=== PATIENT | female | born 1960 | race Hispanic/Latino ===

== ENCOUNTER 2019-04-06 11:47 | Emergency (ER) | payer MEDICARE, OTHER ==
[~2019-04-06] VITALS: Ht 152.4 cm; Wt 63.5 kg
--- OUTSIDE RECORDS SUMMARY | 2019-04-06 11:50 | XMS REPORT ---
Author Author [facility] Address Unknown Phone Unavailable Care Team Providers Care Unit Assistant Name Role Phone Ender WILSON Unavailable Unavailable Problems This patient has no known problems. Allergies, Adverse Reactions, Alerts This patient has no known allergies or adverse reactions. Medications This patient has no known medications. Results Test Description Test Time Test Comments Text Results Atomic Results Result Comments BLOOD CULTURE 2019-02-25 20:01:00 CULTURE (BEAKER) (test bxnb=7734) No growth in 5 days BLOOD [id number] 20:01:00* Test Item Value Reference Range Comments CULTURE (BEAKER) (test cedh=8844) No growth in 5 days TACROLIMUS [id number] 10:58:00* Test Item Value Reference Range Comments TACROLIMUS BLOOD (BEAKER) (test jdki=419) 7.8 ng/mL 10.0-20.0 VRE [id number] 10:54:00* Test Item Value Reference Range Comments CULTURE (BEAKER) (test kfki=4409) No vancomycin-resistant Enterococcus isolated SPUTUM CULTURE + GRAM [id number] 09:15:00* Test Item Value Reference Range Comments CULTURE (BEAKER) (test afrt=2547) 1+ Normal respiratory johanny present GRAM STAIN RESULT (BEAKER) (test ddqc=9246) 1+ WBCs GRAM STAIN RESULT (BEAKER) (test zvti=27092) 0-5 epithelial cells GRAM STAIN RESULT (BEAKER) (test hbev=58971) No organisms seen CBC W/PLT COUNT & AUTO [id number] 06:53:00* Test Item Value Reference Range Comments WHITE BLOOD CELL COUNT (BEAKER) (test nrrd=716) 4.8 K/ L 3.5-10.5 RED BLOOD CELL COUNT (BEAKER) (test gvam=429) 3.58 M/ L 3.93-5.22 HEMOGLOBIN (BEAKER) (test cbzz=672) 10.5 GM/DL 11.2-15.7 HEMATOCRIT (BEAKER) (test mihs=271) 31.1 % 34.1-44.9 MEAN CORPUSCULAR VOLUME (BEAKER) (test byty=708) 86.9 fL 79.4-94.8 MEAN CORPUSCULAR HEMOGLOBIN (BEAKER) (test ewzz=136) 29.3 pg 25.6-32.2 MEAN CORPUSCULAR HEMOGLOBIN CONC (BEAKER) (test kbgp=604) 33.8 GM/DL 32.2-35.5 RED CELL DISTRIBUTION WIDTH (BEAKER) (test xwfm=683) 15.5 % 11.7-14.4 PLATELET COUNT (BEAKER) (test bezv=781) 192 K/CU MM 150-450 MEAN PLATELET VOLUME (BEAKER) (test oojy=061) 11.9 fL 9.4-12.3 NUCLEATED RED BLOOD CELLS (BEAKER) (test loou=786) 0 /100 WBC 0-0 NEUTROPHILS RELATIVE PERCENT (BEAKER) (test tbms=761) 54 % LYMPHOCYTES RELATIVE PERCENT (BEAKER) (test ztog=425) 24 % MONOCYTES RELATIVE PERCENT (BEAKER) (test xsqb=918) 8 % EOSINOPHILS RELATIVE PERCENT (BEAKER) (test tyxj=983) 12 % BASOPHILS RELATIVE PERCENT (BEAKER) (test hwbw=281) 0 % NEUTROPHILS ABSOLUTE COUNT (BEAKER) (test pnar=398) 2.58 K/ L 1.56-6.13 LYMPHOCYTES ABSOLUTE COUNT (BEAKER) (test yqli=672) 1.16 K/ L 1.18-3.74 MONOCYTES ABSOLUTE COUNT (BEAKER) (test fpxj=518) 0.40 K/ L 0.24-0.36 EOSINOPHILS ABSOLUTE COUNT (BEAKER) (test orqj=773) 0.55 K/ L 0.04-0.36 BASOPHILS ABSOLUTE COUNT (BEAKER) (test npjz=589) 0.02 K/ L 0.01-0.08 IMMATURE GRANULOCYTES-RELATIVE PERCENT (BEAKER) (test gcyp=1065) 2 % 0-1 BASIC METABOLIC [id number] 06:34:00* Test Item Value Reference Range Comments SODIUM (BEAKER) (test iojb=412) 141 meq/L 136-145 POTASSIUM (BEAKER) (test dteo=487) 4.0 meq/L 3.5-5.1 Specimen slightly hemolyzed CHLORIDE (BEAKER) (test igrj=316) 116 meq/L 98-107 CO2 (BEAKER) (test jrsu=250) 19 meq/L 22-29 BLOOD UREA NITROGEN (BEAKER) (test huyd=408) 20 mg/dL 7-21 CREATININE (BEAKER) (test pote=062) 0.98 mg/dL 0.57-1.25 Specimen slightly hemolyzed GLUCOSE RANDOM (BEAKER) (test ukpm=408) 105 mg/dL 70-105 CALCIUM (BEAKER) (test ivxl=856) 8.5 mg/dL 8.4-10.2 EGFR (BEAKER) (test bprg=6925) 58 mL/min/1.73 sq m ESTIMATED GFR IS NOT ACCURATE CREATININE CLEARANCE IN PREDICTING GLOMERULAR FILTRATION RATE. ESTIMATED GFR IS NOT APPLICABLE FOR DIALYSIS PATIENTS. HEPATIC FUNCTION [id number] 06:34:00* Test Item Value Reference Range Comments TOTAL PROTEIN (BEAKER) (test gico=659) 5.3 gm/dL 6.0-8.3 Specimen slightly hemolyzed ALBUMIN (BEAKER) (test snod=9188) 3.5 g/dL 3.5-5.0 Specimen slightly hemolyzed BILIRUBIN TOTAL (BEAKER) (test ixrk=708) 0.6 mg/dL 0.2-1.2 Specimen slightly hemolyzed BILIRUBIN DIRECT (BEAKER) (test nfpf=763) 0.3 mg/dL 0.1-0.5 Specimen slightly hemolyzed ALKALINE PHOSPHATASE (BEAKER) (test qzvi=046) 68 U/L 40-150 AST (SGOT) (BEAKER) (test mwrz=734) 13 U/L 5-34 Specimen slightly hemolyzed ALT (SGPT) (BEAKER) (test nvki=826) 7 U/L 6-55 Specimen slightly hemolyzed TACROLIMUS [id number] 11:41:00* Test Item Value Reference Range Comments TACROLIMUS BLOOD (BEAKER) (test yrdz=879) 11.3 ng/mL 10.0-20.0 CORTISOL,60 [id number] 11:23:00* Test Item Value Reference Range Comments CORTISOL BASELINE NETWORKED (BEAKER) (test hfog=9526) 7.4 mcg/dL CORTISOL 30 MINUTE NETWORKED (BEAKER) (test fnev=5891) 13.4 mcg/dL CORTISOL, 60 MINUTE (KIM) (test agmy=0719) 9.9 ug/dL ACTH STIMULATION TEST INTERPRETATION GUIDELINES(Synonyms: Cortrosyn Test, Co syntropin or Corticotropin Stimulation Test)Adenocorticotropic hormone (ACTH)is a tropic hormone, made in the pituitary gland, which travels trhough the bloodst ream and stimulates the cortex of the adrenal glands to release cortisol. Cortis ol is a primary hormone, which aids the body's metabolism of fats, carbohydrates , and protein as well as sodium and potassium regulation.ACTH Stimulation Test: Exogenous administration of biologically active ACTH stimulates the secretion of cortisol from the adrenal gland. This test is used to evaluate adrenal function by measuring cortisol levels at baseline and at 30 and 60 minutes after the adm inistration of 250 micrograms of cosyntropin (Cortrosyn). Patients who have rece ived exogenous corticosteroids immediately prior to performing the ACTH Stimulat ion Test will often have elevated baseline cortisol levels, which may lead to er roneous interpretation of test results. The notable exception is with dexamethas one.Normal Response: An increase in cortisol after stimulation by ACTH is normal . Post-stimulation cortisol concentration should be greater than 20 mcg/dL or th e rate of rise from baseline cortisol should be greater than or equal to 9 mcg/d L.Patients with sepsis or septic shock: According to a study by Kylie et al ([facility] 2000,283(8):1038-45), the ACTH Stimulation Test provides important prognostic information. This study defined 3 groups of patients with sepsis or septic shoc k: 1. Good Survival: Low basal cortisol (<or=34 mcg/dL) and high ACTH response (>9mcg/dL) 2. Intermediate Survival: Low basal cortisol (<34 mcg/dL) and low response to ACTH (<or=9 mcg/dL) OR High basal cortisol (>34 mcg/dL) or high ACTH response (>9 mcg/dL) 3. Poor Survival: High basal cortisol (>34 mcg/dL) and low ACTH response (<or=9 mcg/dL).Treatment of patients with relative adrenal dysfunction may be indicated based on test results and the clinical condition of the patient. Additional information, including treatment recommendations, is available in critically ill patients, approved by the Pharmacy, Nutrition, and Therapeutics Committee on 08/19/2004 and available through the Pharmacy Policy and Procedure Section on The Source.Do not run this test if systemic hydrocortisone, methylprednisolone, prednisolone or prednisone has been administered within the past 24 hours.Draw baseline cortisol level just prior to cosyntropin administration.Administer cosyntropin 1 mcg/mL via slow IV push over a period of 2 minutes. Flush the line after the dose to ensure the entire dose is delivered.Draw serum cortisol level 30 minutes after cosyntropin administration.Draw serum cortisol level 60 minutes after cosyntropin administration.CORTISOL,30 [id number] 10:48:00* Test Item Value Reference Range Comments CORTISOL BASELINE NETWORKED (BEAKER) (test xdjv=4591) 7.4 mcg/dL CORTISOL, 30 MINUTE (BEAKER) (test rjbv=8494) 13.4 ug/dL ACTH STIMULATION TEST INTERPRETATION GUIDELINES(Synonyms: Cortrosyn Test, Co syntropin or Corticotropin Stimulation Test)Adenocorticotropic hormone (ACTH)is a tropic hormone, made in the pituitary gland, which travels trhough the bloodst ream and stimulates the cortex of the adrenal glands to release cortisol. Cortis ol is a primary hormone, which aids the body's metabolism of fats, carbohydrates , and protein as well as sodium and potassium regulation.ACTH Stimulation Test: Exogenous administration of biologically active ACTH stimulates the secretion of cortisol from the adrenal gland. This test is used to evaluate adrenal function by measuring cortisol levels at baseline and at 30 and 60 minutes after the adm inistration of 250 micrograms of cosyntropin (Cortrosyn). Patients who have rece ived exogenous corticosteroids immediately prior to performing the ACTH Stimulat ion Test will often have elevated baseline cortisol levels, which may lead to er roneous interpretation of test results. The notable exception is with dexamethas one.Normal Response: An increase in cortisol after stimulation by ACTH is normal . Post-stimulation cortisol concentration should be greater than 20 mcg/dL or th e rate of rise from baseline cortisol should be greater than or equal to 9 mcg/d L.Patients with sepsis or septic shock: According to a study by Kylie et al ([facility] 2000,283(8):0259-45), the ACTH Stimulation Test provides important prognostic information. This study defined 3 groups of patients with sepsis or septic shoc k: 1. Good Survival: Low basal cortisol (<or=34 mcg/dL) and high ACTH response (>9mcg/dL) 2. Intermediate Survival: Low basal cortisol (<34 mcg/dL) and low response to ACTH (<or=9 mcg/dL) OR High basal cortisol (>34 mcg/dL) or high ACTH response (>9 mcg/dL) 3. Poor Survival: High basal cortisol (>34 mcg/dL) and low ACTH response (<or=9 mcg/dL).Treatment of patients with relative adrenal dysfunction may be indicated based on test results and the clinical condition of the patient. Additional information, including treatment recommendations, is available in critically ill patients, approved by the Pharmacy, Nutrition, and Therapeutics Committee on 08/19/2004 and available through the Pharmacy Policy and Procedure Section on The Source.Do not run this test if systemic hydrocortisone, methylprednisolone, prednisolone or prednisone has been administered within the past 24 hours.Draw baseline cortisol level just prior to cosyntropin administration.Administer cosyntropin 1 mcg/mL via slow IV push over a period of 2 minutes. Flush the line after the dose to ensure the entire dose is delivered.Draw serum cortisol level 30 minutes after cosyntropin administration.Draw serum cortisol level 60 minutes after cosyntropin administration.CORTISOL,[id number] 10:20:00* Test Item Value Reference Range Comments CORTISOL, BASELINE (KIM) (test nouw=8263) 7.4 ug/dL ACTH STIMULATION TEST INTERPRETATION GUIDELINES(Synonyms: Cortrosyn Test, Co syntropin or Corticotropin Stimulation Test)Adenocorticotropic hormone (ACTH)is a tropic hormone, made in the pituitary gland, which travels trhough the bloodst ream and stimulates the cortex of the adrenal glands to release cortisol. Cortis ol is a primary hormone, which aids the body's metabolism of fats, carbohydrates , and protein as well as sodium and potassium regulation.ACTH Stimulation Test: Exogenous administration of biologically active ACTH stimulates the secretion of cortisol from the adrenal gland. This test is used to evaluate adrenal function by measuring cortisol levels at baseline and at 30 and 60 minutes after the adm inistration of 250 micrograms of cosyntropin (Cortrosyn). Patients who have rece ived exogenous corticosteroids immediately prior to performing the ACTH Stimulat ion Test will often have elevated baseline cortisol levels, which may lead to er roneous interpretation of test results. The notable exception is with dexamethas one.Normal Response: An increase in cortisol after stimulation by ACTH is normal . Post-stimulation cortisol concentration should be greater than 20 mcg/dL or th e rate of rise from baseline cortisol should be greater than or equal to 9 mcg/d L.Patients with sepsis or septic shock: According to a study by Kylie et al ([facility] 1999,283(8):1038-45), the ACTH Stimulation Test provides important prognostic information. This study defined 3 groups of patients with sepsis or septic shoc k: 1. Good Survival: Low basal cortisol (<or=34 mcg/dL) and high ACTH response (>9mcg/dL) 2. Intermediate Survival: Low basal cortisol (<34 mcg/dL) and low response to ACTH (<or=9 mcg/dL) OR High basal cortisol (>34 mcg/dL) or high ACTH response (>9 mcg/dL) 3. Poor Survival: High basal cortisol (>34 mcg/dL) and low ACTH response (<or=9 mcg/dL).Treatment of patients with relative adrenal dysfunction may be indicated based on test results and the clinical condition of the patient. Additional information, including treatment recommendations, is available in critically ill patients, approved by the Pharmacy, Nutrition, and Therapeutics Committee on 08/19/2004 and available through the Pharmacy Policy and Procedure Section on The Source.Do not run this test if systemic hydrocortisone, methylprednisolone, prednisolone or prednisone has been administered within the past 24 hours.Draw baseline cortisol level just prior to cosyntropin administration.Administer cosyntropin 1 mcg/mL via slow IV push over a period of 2 minutes. Flush the line after the dose to ensure the entire dose is delivered.Draw serum cortisol level 30 minutes after cosyntropin administration.Draw serum cortisol level 60 minutes after cosyntropin administration.CBC W/PLT COUNT & AUTO [id number] 07:58:00* Test Item Value Reference Range Comments WHITE BLOOD CELL COUNT (BEAKER) (test kgzw=587) 5.5 K/ L 3.5-10.5 RED BLOOD CELL COUNT (BEAKER) (test cejw=472) 3.80 M/ L 3.93-5.22 HEMOGLOBIN (BEAKER) (test erlq=648) 11.2 GM/DL 11.2-15.7 HEMATOCRIT (BEAKER) (test sanb=895) 33.7 % 34.1-44.9 MEAN CORPUSCULAR VOLUME (BEAKER) (test drft=929) 88.7 fL 79.4-94.8 MEAN CORPUSCULAR HEMOGLOBIN (BEAKER) (test trpo=524) 29.5 pg 25.6-32.2 MEAN CORPUSCULAR HEMOGLOBIN CONC (BEAKER) (test blhn=571) 33.2 GM/DL 32.2-35.5 RED CELL DISTRIBUTION WIDTH (BEAKER) (test ftwr=327) 15.5 % 11.7-14.4 PLATELET COUNT (BEAKER) (test gptx=290) 196 K/CU MM 150-450 MEAN PLATELET VOLUME (BEAKER) (test trhi=935) 11.6 fL 9.4-12.3 NUCLEATED RED BLOOD CELLS (BEAKER) (test czjm=748) 0 /100 WBC 0-0 NEUTROPHILS RELATIVE PERCENT (BEAKER) (test inwn=745) 51 % LYMPHOCYTES RELATIVE PERCENT (BEAKER) (test orxn=530) 24 % MONOCYTES RELATIVE PERCENT (BEAKER) (test btri=038) 9 % EOSINOPHILS RELATIVE PERCENT (BEAKER) (test idif=339) 13 % BASOPHILS RELATIVE PERCENT (BEAKER) (test xrhh=696) 1 % NEUTROPHILS ABSOLUTE COUNT (BEAKER) (test vqov=247) 2.80 K/ L 1.56-6.13 LYMPHOCYTES ABSOLUTE COUNT (BEAKER) (test qleg=550) 1.34 K/ L 1.18-3.74 MONOCYTES ABSOLUTE COUNT (BEAKER) (test vibq=005) 0.50 K/ L 0.24-0.36 EOSINOPHILS ABSOLUTE COUNT (BEAKER) (test xpvt=168) 0.70 K/ L 0.04-0.36 BASOPHILS ABSOLUTE COUNT (BEAKER) (test sfyj=047) 0.03 K/ L 0.01-0.08 IMMATURE GRANULOCYTES-RELATIVE PERCENT (BEAKER) (test qxkq=2203) 3 % 0-1 HEPATIC FUNCTION [id number] 07:07:00* Test Item Value Reference Range Comments TOTAL PROTEIN (BEAKER) (test dwhc=986) 5.5 gm/dL 6.0-8.3 ALBUMIN (BEAKER) (test czbp=4148) 3.6 g/dL 3.5-5.0 BILIRUBIN TOTAL (BEAKER) (test mzsy=676) 0.9 mg/dL 0.2-1.2 BILIRUBIN DIRECT (BEAKER) (test lbvj=045) 0.4 mg/dL 0.1-0.5 ALKALINE PHOSPHATASE (BEAKER) (test nhto=665) 69 U/L 40-150 AST (SGOT) (BEAKER) (test wgzs=271) 10 U/L 5-34 ALT (SGPT) (BEAKER) (test oqvf=198) 8 U/L 6-55 BASIC METABOLIC [id number] 07:07:00* Test Item Value Reference Range Comments SODIUM (BEAKER) (test ecyn=852) 139 meq/L 136-145 POTASSIUM (BEAKER) (test olkn=372) 4.1 meq/L 3.5-5.1 CHLORIDE (BEAKER) (test vgck=709) 113 meq/L 98-107 CO2 (BEAKER) (test xtmp=408) 21 meq/L 22-29 BLOOD UREA NITROGEN (BEAKER) (test ylji=346) 20 mg/dL 7-21 CREATININE (BEAKER) (test hjcy=435) 1.13 mg/dL 0.57-1.25 GLUCOSE RANDOM (BEAKER) (test ckse=033) 94 mg/dL 70-105 CALCIUM (BEAKER) (test ddxn=592) 8.7 mg/dL 8.4-10.2 EGFR (BEAKER) (test osmg=2028) 49 mL/min/1.73 sq m ESTIMATED GFR IS NOT ACCURATE CREATININE CLEARANCE IN PREDICTING GLOMERULAR FILTRATION RATE. ESTIMATED GFR IS NOT APPLICABLE FOR DIALYSIS PATIENTS. [id number] 06:55:00* Test Item Value Reference Range Comments THYROID STIMULATING HORMONE (BEAKER) (test rrte=267) 0.98 uIU/mL 0.35-4.94 URINALYSIS W/ REFLEX URINE [id number] 18:02:00* Test Item Value Reference Range Comments COLOR (BEAKER) (test pquz=644) Yellow CLARITY (BEAKER) (test vxsu=863) Clear SPECIFIC GRAVITY UA (BEAKER) (test juek=563) 1.016 1.001-1.035 PH UA (BEAKER) (test tywd=508) 6.0 5.0-8.0 PROTEIN UA (BEAKER) (test gnlx=384) 10 mg/dL Negative GLUCOSE UA (BEAKER) (test ppea=069) Negative Negative KETONES UA (BEAKER) (test wcob=875) Negative Negative BILIRUBIN UA (BEAKER) (test lmgt=021) Negative Negative BLOOD UA (BEAKER) (test lhic=088) Negative Negative NITRITE UA (BEAKER) (test rwgn=451) Negative Negative LEUKOCYTE ESTERASE UA (BEAKER) (test luul=579) Negative Negative UROBILINOGEN UA (BEAKER) (test pgmx=981) 0.2 mg/dL 0.2-1.0 RBC UA (BEAKER) (test wkid=234) 0 /HPF WBC UA (BEAKER) (test etmd=779) 1 /HPF MUCUS (BEAKER) (test ckft=2279) Rare SQUAMOUS EPITHELIAL (BEAKER) (test tmpn=379) 1 /HPF SOURCE(BEAKER) (test pirn=2706) TACROLIMUS [id number] 10:32:00* Test Item Value Reference Range Comments TACROLIMUS BLOOD (BEAKER) (test ljbw=128) 5.5 ng/mL 10.0-20.0 TACROLIMUS [id number] 10:32:00* Test Item Value Reference Range Comments TACROLIMUS BLOOD (BEAKER) (test fsmy=702) 14.7 ng/mL 10.0-20.0 HEPATIC FUNCTION [id number] 06:02:00* Test Item Value Reference Range Comments TOTAL PROTEIN (BEAKER) (test lcky=863) 5.2 gm/dL 6.0-8.3 ALBUMIN (BEAKER) (test spbo=3080) 3.6 g/dL 3.5-5.0 BILIRUBIN TOTAL (BEAKER) (test eitp=988) 0.9 mg/dL 0.2-1.2 BILIRUBIN DIRECT (BEAKER) (test pqxa=314) 0.4 mg/dL 0.1-0.5 ALKALINE PHOSPHATASE (BEAKER) (test wgbw=602) 64 U/L 40-150 AST (SGOT) (BEAKER) (test yuyg=944) 10 U/L 5-34 ALT (SGPT) (BEAKER) (test hspp=435) 9 U/L 6-55 BASIC METABOLIC [id number] 06:02:00* Test Item Value Reference Range Comments SODIUM (BEAKER) (test bqyo=788) 138 meq/L 136-145 POTASSIUM (BEAKER) (test nayf=650) 3.7 meq/L 3.5-5.1 CHLORIDE (BEAKER) (test eqxo=831) 112 meq/L 98-107 CO2 (BEAKER) (test scfr=144) 20 meq/L 22-29 BLOOD UREA NITROGEN (BEAKER) (test zzyd=285) 18 mg/dL 7-21 CREATININE (BEAKER) (test fven=928) 0.85 mg/dL 0.57-1.25 GLUCOSE RANDOM (BEAKER) (test qnzc=143) 90 mg/dL 70-105 CALCIUM (BEAKER) (test xnic=660) 8.4 mg/dL 8.4-10.2 EGFR (BEAKER) (test jsfu=9425) 68 mL/min/1.73 sq m ESTIMATED GFR IS NOT ACCURATE CREATININE CLEARANCE IN PREDICTING GLOMERULAR FILTRATION RATE. ESTIMATED GFR IS NOT APPLICABLE FOR DIALYSIS PATIENTS. CBC W/PLT COUNT & AUTO [id number] 05:55:00* Test Item Value Reference Range Comments WHITE BLOOD CELL COUNT (BEAKER) (test frfz=609) 5.4 K/ L 3.5-10.5 RED BLOOD CELL COUNT (BEAKER) (test axsn=009) 3.67 M/ L 3.93-5.22 HEMOGLOBIN (BEAKER) (test lmoz=626) 10.7 GM/DL 11.2-15.7 HEMATOCRIT (BEAKER) (test uexd=307) 32.2 % 34.1-44.9 MEAN CORPUSCULAR VOLUME (BEAKER) (test lmri=325) 87.7 fL 79.4-94.8 MEAN CORPUSCULAR HEMOGLOBIN (BEAKER) (test ecfl=728) 29.2 pg 25.6-32.2 MEAN CORPUSCULAR HEMOGLOBIN CONC (BEAKER) (test ppts=067) 33.2 GM/DL 32.2-35.5 RED CELL DISTRIBUTION WIDTH (BEAKER) (test hbqs=836) 15.2 % 11.7-14.4 PLATELET COUNT (BEAKER) (test twmt=915) 196 K/CU MM 150-450 MEAN PLATELET VOLUME (BEAKER) (test zzmp=442) 11.6 fL 9.4-12.3 NUCLEATED RED BLOOD CELLS (BEAKER) (test rvwt=255) 0 /100 WBC 0-0 NEUTROPHILS RELATIVE PERCENT (BEAKER) (test wkty=812) 50 % LYMPHOCYTES RELATIVE PERCENT (BEAKER) (test guyl=443) 25 % MONOCYTES RELATIVE PERCENT (BEAKER) (test lomp=320) 8 % EOSINOPHILS RELATIVE PERCENT (BEAKER) (test fvyn=280) 15 % BASOPHILS RELATIVE PERCENT (BEAKER) (test wged=043) 1 % NEUTROPHILS ABSOLUTE COUNT (BEAKER) (test gmua=693) 2.69 K/ L 1.56-6.13 LYMPHOCYTES ABSOLUTE COUNT (BEAKER) (test cnes=754) 1.34 K/ L 1.18-3.74 MONOCYTES ABSOLUTE COUNT (BEAKER) (test sqkc=730) 0.44 K/ L 0.24-0.36 EOSINOPHILS ABSOLUTE COUNT (BEAKER) (test xcey=816) 0.82 K/ L 0.04-0.36 BASOPHILS ABSOLUTE COUNT (BEAKER) (test hkgg=403) 0.03 K/ L 0.01-0.08 IMMATURE GRANULOCYTES-RELATIVE PERCENT (BEAKER) (test ftkd=4601) 2 % 0-1 RESPIRATORY PANEL [id number] 22:39:00* Test Item Value Reference Range Comments HUMAN METAPNEUMOVIRUS (BEAKER) (test jvhi=3032) Not detected Not detected, Equivocal RHINOVIRUS (BEAKER) (test hxvt=4809) Not detected Not detected, Equivocal INFLUENZA A (BEAKER) (test mlnu=9005) Not detected Not detected, Equivocal INFLUENZA A (NO SUBTYPE) (test omlj=7379) Not detected, Equivocal INFLUENZA A SUBTYPE H1 (BEAKER) (test oial=2055) Not detected, Equivocal INFLUENZA A SUBTYPE H3 (BEAKER) (test nmxs=3151) Not detected, Equivocal INFLUENZA A SUBTYPE H1-2009 (BEAKER) (test kfak=6937) Not detected, Equivocal INFLUENZA B (BEAKER) (test trub=0982) Not detected Not detected, Equivocal RESPIRATORY SYNCYTIAL VIRUS (BEAKER) (test zsbd=6199) Not detected Not detected, Equivocal PARAINFLUENZA VIRUS 1 (BEAKER) (test cmxm=4607) Not detected Not detected, Equivocal PARAINFLUENZA VIRUS 2 (BEAKER) (test lhqo=7358) Not detected Not detected, Equivocal PARAINFLUENZA VIRUS 3 (BEAKER) (test adsd=1665) Not detected Not detected, Equivocal PARAINFLUENZA VIRUS 4 (BEAKER) (test gmbu=6719) Not detected Not detected, Equivocal ADENOVIRUS (BEAKER) (test peni=1441) Not detected Not detected, Equivocal CORONAVIRUS 229E (BEAKER) (test qzfo=2848) Not detected Not detected, Equivocal CORONAVIRUS HKU1 (BEAKER) (test tupr=0677) Not detected Not detected, Equivocal CORONAVIRUS NL63 (BEAKER) (test kefc=9191) Not detected Not detected, Equivocal CORONAVIRUS OC43 (BEAKER) (test czjf=6496) Not detected Not detected, Equivocal BORDETELLA PERTUSSIS (BEAKER) (test ftkd=9407) Not detected Not detected, Equivocal CHLAMYDOPHILA PNEUMONIAE (BEAKER) (test fqkd=3187) Not detected Not detected, Equivocal MYCOPLASMA PNEUMONIAE (BEAKER) (test xtsl=5465) Not detected Not detected, Equivocal Other viruses and bacteria not targeted by this PCR panel cannot be excluded; th erefore clinical correlation and follow up of serology, culture results, and oth er molecular studies is required. The results are not intended to be used as the sole means for clinical diagnosis or patient management decisions. This sample was tested at the [facility] using the PasspackA rray Respiratory Panel. It is FDA cleared and has been verified and approved by the [facility] for clinical use on nasopharyngeal sw ab specimens.The performance of the FilmArray RP has not been established in ind ividuals who received influenza vaccine. Recent administration of a nasal influ jaswant vaccine may cause false positive results for Influenza A and/orInfluenza B. LEGIONELLA ANTIGEN, [id number] 22:15:00* Test Item Value Reference Range Comments L. PNEUMOPHILA SEROGP 1 UR AG (BEAKER) (test vfcw=7616) Negative - see comment Negative for L. pneumophila serogroup 1 antigen, suggesting no recent or current infection with this serogroup. Legionellosis cannot be ruled out since other serogroups and species may cause disease. STREP PNEUMONIAE [id number] 22:14:00* Test Item Value Reference Range Comments STREP PNEUMONIAE ANTIGEN (BEAKER) (test tktt=[id number]) Presumptive negative for pneumococcal pneumonia - see comment Presumptive negative for pneumococcal pneumonia - see commen Presumptive negative for pneumococcal pneumonia, suggesting no current or recent pneumococcal infection. Infection due to S. pneumoniae cannot be ruled out since the antigen present in the sample may be below the detection limit of the test. CT, CHEST, WITHOUT [id number] 21:42:00FINAL REPORT CT, CHEST, WITHOUT CONTRAST INDICATION: Shortness of breath COMPARISON: None TECHNIQUE: Axially oriented images were obtained from the thoracic inlet through the lung bases without IV contrast administration. Coronal and sagittal reformats were provided. DOSE REDUCTION: Dose modulation, iterative reconstruction, and/or weight-based adjustment of the mA/kV was utilized to reduce the radiation dose to as low as reasonably achievable. FINDINGS: Lungs and Pleura: Lower lobe peribronchial and the left upper lobe groundglass opacities with minimal discoid consolidations. No effusion or pneumothorax. C entral airways: Patent. Mediastinum: No adenopathy. Heart and pericardium: Trace pericardial effusion. Heart size is normal. Great vessels: Normal calibers. Inc luded upper abdomen: Small hiatal hernia.Partially imaged subxiphoid ventral her bashir containing bowel loop. Regional skeletal structures: Intact. Additional find ings: Multinodular thyroid with dominant right lobe 6 mm and left lobe 1 cm nodu le. IMPRESSION: Bibasilar and left upper lobe peribronchial opacities suggestive of multifocal pneumonia or possibly pulmonary edema. Follow-up to ensure comple te resolution. Small hiatal hernia. Partially imaged abdominal ventral hernia. Multinodular thyroid. Dominant left lobe 1 cm nodule does not meet size criteria for further imaging workup recommendations. No additional imaging workup recomm ended. Signed: Brittaney Ohara [facility] Verified Date/Time: 02/20/2019 21:42:47 D INFLUENZA A&B [id number] 19:38:00* Test Item Value Reference Range Comments RAPID INFLUENZA A AG (BEAKER) (test znqb=2942) Negative Negative, Inconclusive RAPID INFLUENZA B AG (BEAKER) (test ekjs=2886) Negative Negative, Inconclusive [id number] 19:27:00* Test Item Value Reference Range Comments D-DIMER QUANTITATIVE (BEAKER) (test ymut=830) 0.29 MG/L FEU <0.50 Intended Use: The D-Dimer Assay can be used to aid in the diagnosis of Deep Vein Thrombosis (DVT) and Pulmonary Embolism Disease (PED).In patients with low pre- test probability, various studies concerning STA Liatest D-dimer test have repor camille that with a cutoff value of 0.50 MG/L FEU, the Negative Predictive Value (DIRECT SALES PROFESSIONAL V) regarding the exclusion of thrombosis is within 95-100% range.POCT-LACTIC ACID, [id number] 15:10:00* Test Item Value Reference Range Comments POC-LACTIC ACID, VENOUS (BEAKER) (test txnh=7497) 0.5 mmol/L 0.9-1.7 TESTED AT [facility] [address] [address] TROPONIN [id number] 13:44:00* Test Item Value Reference Range Comments TROPONIN I (BEAKER) (test uoxq=488) < ng/mL 0.00-0.03 Troponin I (TnI) levels must be interpreted in the context of the presenting sym ptoms and the clinical findings. Elevated TnI levels indicate myocardial damage, but are not specific for ischemic heart disease. Elevated TnI levels are seen in patients with other cardiac conditions (including myocarditis and congestive h eart failure), and slight TnI elevations occur in patients with other conditions , including sepsis, renal failure, acidosis, acute neurological disease, and per sistent tachyarrhythmia.B-TYPE NATRIURETIC FACTOR (BNP)2019-02-20 13:43:00* Test Item Value Reference Range Comments B-TYPE NATRIURETIC PEPTIDE (BEAKER) (test xmun=979) 36 pg/mL 0-100 HEPATIC FUNCTION [id number] 13:37:00* Test Item Value Reference Range Comments TOTAL PROTEIN (BEAKER) (test ezxa=638) 6.6 gm/dL 6.0-8.3 ALBUMIN (BEAKER) (test hnjp=7256) 4.3 g/dL 3.5-5.0 BILIRUBIN TOTAL (BEAKER) (test hkzc=732) 1.0 mg/dL 0.2-1.2 BILIRUBIN DIRECT (BEAKER) (test zuue=129) 0.4 mg/dL 0.1-0.5 ALKALINE PHOSPHATASE (BEAKER) (test wonf=670) 83 U/L 40-150 AST (SGOT) (BEAKER) (test rtqd=135) 12 U/L 5-34 ALT (SGPT) (BEAKER) (test njtk=386) 10 U/L 6-55 BASIC METABOLIC [id number] 13:37:00* Test Item Value Reference Range Comments SODIUM (BEAKER) (test vbos=987) 140 meq/L 136-145 POTASSIUM (BEAKER) (test shhl=626) 3.8 meq/L 3.5-5.1 CHLORIDE (BEAKER) (test rwpx=818) 113 meq/L 98-107 CO2 (BEAKER) (test ntbv=351) 19 meq/L 22-29 BLOOD UREA NITROGEN (BEAKER) (test esxn=957) 20 mg/dL 7-21 CREATININE (BEAKER) (test bkev=903) 1.03 mg/dL 0.57-1.25 GLUCOSE RANDOM (BEAKER) (test kyam=814) 119 mg/dL 70-105 CALCIUM (BEAKER) (test ohui=390) 9.2 mg/dL 8.4-10.2 EGFR (BEAKER) (test bruy=9963) 55 mL/min/1.73 sq m ESTIMATED GFR IS NOT ACCURATE CREATININE CLEARANCE IN PREDICTING GLOMERULAR FILTRATION RATE. ESTIMATED GFR IS NOT APPLICABLE FOR DIALYSIS PATIENTS. PT/[id number] 13:31:00* Test Item Value Reference Range Comments PROTIME (BEAKER) (test ovwt=708) 14.9 seconds 11.9-14.2 INR (BEAKER) (test gmja=219) 1.2 <=5.9 PARTIAL THROMBOPLASTIN TIME (BEAKER) (test xmhd=119) 37.2 seconds 22.5-36.0 Effective 02/05/2019: PT Reference Range ChangeNew: 11.9-14.2 Previous: 11.7-14. 7RECOMMENDED COUMADIN/WARFARIN INR THERAPY RANGESSTANDARD DOSE: 2.0-3.0 Include s: PROPHYLAXIS for venous thrombosis, systemic embolization; TREATMENT for venou s thrombosis and/or pulmonary embolus.HIGH RISK: Target INR is 2.5-3.5 for patie nts wiht mechanical heart valves.CBC W/PLT COUNT & AUTO [id number] 13:25:00* Test Item Value Reference Range Comments WHITE BLOOD CELL COUNT (BEAKER) (test dila=002) 7.4 K/ L 3.5-10.5 RED BLOOD CELL COUNT (BEAKER) (test ikik=047) 4.29 M/ L 3.93-5.22 HEMOGLOBIN (BEAKER) (test mhjn=721) 12.8 GM/DL 11.2-15.7 HEMATOCRIT (BEAKER) (test wogm=367) 37.2 % 34.1-44.9 MEAN CORPUSCULAR VOLUME (BEAKER) (test bqbr=861) 86.7 fL 79.4-94.8 MEAN CORPUSCULAR HEMOGLOBIN (BEAKER) (test ejwz=538) 29.8 pg 25.6-32.2 MEAN CORPUSCULAR HEMOGLOBIN CONC (BEAKER) (test otry=630) 34.4 GM/DL 32.2-35.5 RED CELL DISTRIBUTION WIDTH (BEAKER) (test bjxm=042) 15.3 % 11.7-14.4 PLATELET COUNT (BEAKER) (test peua=774) 220 K/CU MM 150-450 MEAN PLATELET VOLUME (BEAKER) (test crrz=227) 11.1 fL 9.4-12.3 NUCLEATED RED BLOOD CELLS (BEAKER) (test nalr=702) 0 /100 WBC 0-0 NEUTROPHILS RELATIVE PERCENT (BEAKER) (test lbzw=723) 54 % LYMPHOCYTES RELATIVE PERCENT (BEAKER) (test fsep=654) 18 % MONOCYTES RELATIVE PERCENT (BEAKER) (test pora=641) 7 % EOSINOPHILS RELATIVE PERCENT (BEAKER) (test sagy=664) 19 % BASOPHILS RELATIVE PERCENT (BEAKER) (test inwj=760) 0 % NEUTROPHILS ABSOLUTE COUNT (BEAKER) (test jinl=668) 4.05 K/ L 1.56-6.13 LYMPHOCYTES ABSOLUTE COUNT (BEAKER) (test yzjj=384) 1.32 K/ L 1.18-3.74 MONOCYTES ABSOLUTE COUNT (BEAKER) (test gctl=541) 0.51 K/ L 0.24-0.36 EOSINOPHILS ABSOLUTE COUNT (BEAKER) (test cwim=202) 1.41 K/ L 0.04-0.36 BASOPHILS ABSOLUTE COUNT (BEAKER) (test geox=429) 0.03 K/ L 0.01-0.08 IMMATURE GRANULOCYTES-RELATIVE PERCENT (BEAKER) (test mjdf=8144) 2 % 0-1 RAD, CHEST, 2 [id number] 12:54:00Reason for exam:->PNEUMONIAReason for exam:->LIVER TRANSPLANTFINAL REPORT Chest, 2 views, 02/20/2019 12:51 PM. History: Pneumonia, liver transplant. Comparison: 07/27/2016. Discussion: The cardiomediastinal silhouette and pulmonary vasculature are within normal limits. Linear opacities are present at the lung bases. The lungs are otherwise clear without evidence of consolidation or effusion. There are no acute osseous abnormalities. The soft tissues are unremarkable. IMPRESSION: Bibasilar atelectasis. Signed: Clayton Gan [facility] Verified Date/Time: 02/20/2019 12:54:47 Reading Location: [facility] B1 [id number] Consult Reading Room
--- OUTSIDE RECORDS SUMMARY | 2019-04-06 11:50 | XMS REPORT | Clinical Summary ---
Author Author JOSE [facility] Address Unknown Phone Unavailable Care Team Providers Care Waiter Name Role Phone Stephon Pink MD PCP Unavailable Demario Chamberlain Narendra Unavailable Allergies Comments Active Allergy Reactions Severity Noted Date Adhesive Bandage Rash Low 06/24/2015 Sulfamethoxazole-Trimetho 02/20/2019 prim Latex Hives 06/24/2015 Medications End Date Status Medication Sig Dispensed Refills Start Date Active pantoprazole (PROTONIX) Take 1 tablet 30 tablet 5 40 MG tabletIndications: (40 mg total) 6 Status post liver by mouth transplantation (HCC), daily. Immunosuppression (HCC) Active ergocalciferol (VITAMIN Take 50,000 0 D2) 50,000 unit capsule Units by mouth once a week. Active lactobacillus rhamnosus, Take 1 0 GG, (CULTURELLE) 10 capsule by billion cell capsule mouth daily. Active loperamide (IMODIUM) 2 mg Take 2 mg by 0 capsule mouth 4 (four) times daily as needed for Diarrhea. Active codeine-guaifenesin Take 5 mLs by 0 (CHERATUSSIN AC) 10-100 mouth 3 9 mg/5 mL liquid (three) times daily as needed for Cough or Congestion . Active oxybutynin (DITROPAN-XL) Take 10 mg by 0 10 MG 24 hr tablet mouth daily. Active albuterol (PROVENTIL) 2.5 Take 3 mLs 360 mL 1 mg /3 mL (0.083 %) (2.5 mg 9 nebulizer solution total) by nebulization 4 (four) times daily. Active miscellaneous medical Nebulizer 1 each 0 supply Misc machine with 9 all accessories. Active furosemide (LASIX) 20 MG Take 1 tablet 10 tablet 0 tablet (20 mg total) 9 by mouth daily as needed (For leg swelling). Active mycophenolate (CELLCEPT) Take 1 60 capsule 5 250 mg capsule capsule (250 9 mg total) by mouth 2 (two) times daily. Active tacrolimus (PROGRAF) 1 MG Take 1 60 capsule 5 capsuleIndications: Liver capsule (1 mg 9 transplanted (HCC), total) by Hepatitis, autoimmune mouth 2 (two) (HCC), Immunosuppression times daily. (HCC) 02/20/2019 Discontinued multivitamin per tablet Take 1 tablet 0 by mouth daily. 02/20/2019 Discontinued oxybutynin (DITROPAN) 5 Take 5 mg by 0 MG tablet mouth once . 08/22/2018 Discontinued mycophenolate (CELLCEPT) Take 3 180 capsule 5 250 mg capsules (750 8 capsuleIndications: Liver mg total) by transplanted (HCC), mouth 2 (two) Hepatitis, autoimmune times daily (HCC), Immunosuppression Z94.4 liver (HCC) transplant, generic ok. 07/29/2018 Discontinued PROGRAF 1 mg Take 2 120 capsule 5 capsuleIndications: Liver capsules (2 8 transplanted (HCC), mg total) by Hepatitis, autoimmune mouth 2 (two) (HCC), Immunosuppression times daily. (HCC) 02/20/2019 Discontinued magnesium oxide (MAG-OX) Take 400 mg 0 400 mg (241.3 mg by mouth 2 magnesium) tablet (two) times daily. 02/23/2019 Discontinued tacrolimus (PROGRAF) 1 MG Take 2 120 capsule 5 capsuleIndications: Liver capsules (2 8 transplanted (HCC), mg total) by Hepatitis, autoimmune mouth 2 (two) (HCC), Immunosuppression times daily. (HCC) 02/23/2019 Discontinued mycophenolate (CELLCEPT) TAKE 3 180 capsule 5 250 mg CAPSULES (750 8 capsuleIndications: Liver MG TOTAL) BY transplanted (HCC), MOUTH 2 (TWO) Hepatitis, autoimmune TIMES DAILY (HCC), Immunosuppression THIS IS (HCC) THE SAME MED BEFORE BUT THE COLOR, SIZE, OR SHAPE MAY BE DIFFERENT 02/20/2019 Discontinued amoxicillin-clavulanate TK 1 T PO BID 0 (AUGMENTIN) 875-125 mg 9 per tablet 02/20/2019 Discontinued azithromycin (ZITHROMAX) TK 2 TS PO 0 250 MG tablet FOR 1 DAY 9 THEN TK 1 T PO D THEREAFTER FOR 4 DAYS 02/23/2019 Discontinued amoxicillin-clavulanate Take 1 tablet 0 (AUGMENTIN) 875-125 mg by mouth 2 per tablet (two) times daily. 03/18/2019 Discontinued tacrolimus (PROGRAF) 1 MG Take 1 120 capsule 5 capsuleIndications: Liver capsule (1 mg 9 transplanted (HCC), total) by Hepatitis, autoimmune mouth 2 (two) (HCC), Immunosuppression times daily. (HCC) 03/09/2019 acetylcysteine 20% Take 2 mLs by 56 mL 0 (MUCOMYST) 200 mg/mL (20 nebulization 9 %) nebulizer solution 2 (two) times daily for 14 days. 03/02/2019 levoFLOXacin (LEVAQUIN) Take 1 tablet 7 tablet 0 500 MG tablet (500 mg 9 total) by mouth daily for 7 days. Active Problems Problem Noted Date Multinodular goiter 02/23/2019 Chronic diastolic heart failure 02/23/2019 Hypotension 02/22/2019 Sleep apnea 02/21/2019 Possible Pneumonia due to gram-negative bacteria 02/21/2019 Bradycardia, sinus 02/21/2019 Urine incontinence 02/21/2019 Acute dyspnea 02/20/2019 CKD (chronic kidney disease) stage 2, GFR 60-89 ml/min 02/20/2019 Gastroesophageal reflux disease without esophagitis 02/20/2019 Immunocompromised state 02/20/2019 Bilateral atelectasis 02/20/2019 Ventral incisional hernia 10/04/2015 Last Assessment & Plan: Patient without pain or erythema. No desire for cosmetic correction. Will continue to follow, and correct if patient has symptoms suggestive of obstruction or ischemia, or if cosmetic correction desired. H/O liver transplant 08/24/2015 Last Assessment & Plan: Good allograft function, no signs of rejection. Continue to monitor. Hepatitis, autoimmune 04/24/2013 Last Assessment & Plan: Her symptoms are controlled at this time. Resolved Problems Problem Noted Date Resolved Date Pulmonary hypertension 02/20/2019 02/20/2019 Left lower lobe pneumonia 02/20/2019 02/21/2019 Cellulitis and abscess of leg 07/17/2016 02/20/2019 Last Assessment & Plan: L lower leg cellulitis without complete resolution following clindamycin. Refer to Dr. Lynn Infectious Disease. Sulfa sensitivity 04/25/2016 02/20/2019 Hypertension 03/20/2016 02/20/2019 Overview: L ast Assessment & Plan: On amlodipine, BP well controlled. Continue current medication regimen. Livedo reticularis 03/20/2016 02/20/2019 Last Assessment & Plan: Continue to f/u with dermatology and we will continue to monitor. History of dental problems 11/15/2015 02/20/2019 Last Assessment & Plan: She will hold off on her dental procedures for now Urinary frequency 09/20/2015 02/20/2019 Anemia 08/24/2015 02/20/2019 Overview: UPDATED BY ICD10 SNOMED/IMO UPDATES Diabetes type 2, controlled 08/24/2015 02/20/2019 Last Assessment & Plan: Well controlled on antihyperglycemics, recently decreased insulin dosage. Continue current regimen. Renal dysfunction 08/23/2015 02/20/2019 Last Assessment & Plan: Will await creatinine clearance and possibly add furosemide for volume overload The patient has bilateral lower extremity edema with right worse than left - get lower extremity ultrasound to rule out dvt Anxiety 08/16/2015 02/20/2019 Last Assessment & Plan: Patient still with anxiety and some depression. Scheduled to see Dr. Crandall today for evaluation. Anemia 08/02/2015 02/20/2019 Last Assessment & Plan: Hgb 8.6- transfused in the past. Will follow. Immunosuppression 07/28/2015 02/20/2019 Last Assessment & Plan: She denies headaches or tremors with her immunosuppression. We will adjust her dose according to her levels. We will also increase her cellcept from 500 mg po BID to 750 mg po BID. We will decrease her prednisone from 12.5 mg po to 10 mg po daily. Liver transplanted 07/19/2015 02/20/2019 Last Assessment & Plan: She is s/p OLT from 07/17/2016 secondary to Autoimmune Hepatitis. At this time she does not have evidence of recurrent disease. We will continue to monitor her liver numbers. Pancytopenia 07/16/2015 02/20/2019 Acute renal failure with tubular necrosis 07/16/2015 02/20/2019 Hyperbilirubinemia 07/16/2015 02/20/2019 Hyperglycemia 07/14/2015 02/20/2019 Last Assessment & Plan: Patient with good blood sugar levels in AM, still elevated in PM. Encouraged diet and exercise. Will follow up with endocrinology later this week. Other specified hypotension 07/13/2015 02/20/2019 Screening for malignant neoplasm 08/05/2013 02/20/2019 Last Assessment & Plan: CT triple phase from April 2013 found no concerning lesions. Repeat in October 2013. Portal hypertension 04/28/2013 02/20/2019 Last Assessment & Plan: The patient suffers from portal hypertension and will require medical management until the time of transplantation. The patient has previously undergone a TIPPS procedure. Encounters Care Team Description Date Type Specialty Veena Russo MA 04/04/2019 Abstract Hepatology Jolene Martinez Labs Only (LV RE: LAB/RX RESULTS; NO MED CHANGES; REPEAT BLD WK X2 WKS; 04/07/2019; K/S; GGT;) 03/31/2019 Telephone Transplant Hepatology Jolene Martinez 03/26/2019 Documentation Transplant Hepatology Cyndi Rivas, tire classifier Management 03/19/2019 Telephone Transplant Hepatology Cyndi Rivas, YOANDY Liver transplanted (HCC); Hepatitis, autoimmune (HCC); Immunosuppression (HCC) 03/18/2019 Orders Only Transplant Hepatology Cyndi Rivas, tire classifier Dose Change 03/07/2019 Telephone Transplant Hepatology Cyndi Rivas, YOANDY 03/07/2019 Orders Only Transplant Hepatology Jolene Martinez 02/27/2019 Documentation Transplant Hepatology Jolene Martinez 02/27/2019 Documentation Transplant Hepatology Cyndi Rivas, tire classifier Management 02/25/2019 Telephone Transplant Hepatology 02/21/2019 Orders Only General Internal Medicine Carri Bates MD Feuer, MD Tari La Syed M., MD Pulmonary hypertension (HCC) (Primary Dx); Shortness of breath; History of liver transplant (HCC); H/O liver transplant (HCC); Immunocompromised state (HCC); Liver transplanted (HCC); Hepatitis, autoimmune (HCC); Immunosuppression (HCC) 02/20/2019 Hospital Transplant - Encounter 02/23/2019 Jolene Martinez Labs Only (SPK W PTN RE: LAB/RX RESULTS; NO MED CHANGES; REPEAT BLD WK X4 MTHS; 06/16/2019; OPL; GGT;) 02/20/2019 Telephone Transplant Hepatology 02/20/2019 Travel Cyndi Rivas, YOANDY Pneumonia 02/17/2019 Telephone Transplant Hepatology Jolene Martinez Labs Only (LVM RE: LAB/RX RESULTS; NO MED CHANGES; REPEAT BLD WK X4 MTHS; 02/12/2019; OPL; GGT;) 10/22/2018 Telephone Transplant Hepatology Feliciano Zavala MD Liver transplanted (HCC); Hepatitis, autoimmune (HCC); Immunosuppression (HCC) 08/22/2018 Refill Transplant Hepatology Cyndi Rivas RN Liver transplanted (HCC); Hepatitis, autoimmune (HCC); Immunosuppression (HCC) 07/29/2018 Orders Only Transplant Hepatology Nusrat Jeter MD H/O liver transplant (HCC); Hepatitis, autoimmune (HCC); Hyperglycemia; Immunosuppression (HCC) 07/15/2018 Follow-Up Transplant Hepatology Jolene Martinez 07/15/2018 Documentation Transplant Hepatology Cyndi Rivas, YOANDY 06/27/2018 Documentation Transplant Hepatology Jolene Martinez Labs Only (LVM RE: LAB/RX RESULTS; NO MED CHANGES; REPEAT BLD WK X4 MTHS; 10/17/2018; OPL; GGT;) 06/26/2018 Telephone Transplant Hepatology Cyndi Rivas RN Liver transplanted (HCC) (Primary Dx); Immunosuppression (HCC); Hepatitis, autoimmune (HCC) 05/07/2018 Orders Only Transplant Hepatology after 04/05/2018 Immunizations Name Dates Previously Given Next Due Hepatitis A 05/15/2013 Hepatitis B 06/20/2013, 05/15/2013 11/18/2013 Influenza High Dose 06/26/2015 Preservative Free [id number] Social History Date Tobacco Use Types Packs/Day Years Used Never Smoker Smokeless Tobacco: Never Used Alcohol Use Drinks/Week oz/Week Comments No Sex Assigned at Date Recorded Not on file Industry Job Start Date Occupation Not on file Not on file Not on file Travel End Travel History Travel Start No recent travel history available. Last Filed Vital Signs Time Taken Vital Sign Reading 02/23/2019 8:53 AM CDT Blood Pressure 83/48 02/23/2019 9:00 AM CDT Pulse 58 02/23/2019 8:53 AM CDT Temperature 36.3 C (97.4 F) 02/23/2019 9:00 AM CDT Respiratory Rate 18 02/23/2019 9:00 AM CDT Oxygen Saturation 97% - Inhaled Oxygen - Concentration 02/21/2019 7:33 AM CDT Weight 61.7 kg (136 lb) 02/20/2019 5:03 PM CDT Height 152.4 cm (5') 02/21/2019 7:33 AM CDT Body Mass Index 26.56 Plan of Treatment Care Team Description Date Type Specialty 07/24/2019 Orders Only Transplant Hepatology Nusrat Jeter MD [address] [facility] [address] [place] [address] [phone] 07/24/2019 Follow-Up Transplant Hepatology Procedures Comments Procedure Name Priority Date/Time Associated Diagnosis RHYTHM STRIP - SCAN 02/26/2019 9:40 AM CDT RHYTHM STRIP - SCAN 02/24/2019 12:40 PM CDT CBC W/PLT COUNT & AUTO Routine 02/23/2019 DIFFERENTIAL 5:34 AM CDT BASIC METABOLIC PANEL (7) Routine 02/23/2019 5:34 AM CDT CBC W/PLT COUNT & AUTO Routine 02/23/2019 DIFFERENTIAL 5:34 AM CDT TACROLIMUS LEVEL Routine 02/23/2019 5:34 AM CDT HEPATIC FUNCTION PANEL Routine 02/23/2019 5:34 AM CDT ECHOCARDIOGRAM REPORT - 02/22/2019 SCAN 9:21 PM CDT 2D ECHO W/ DOPPLER SARAH 02/22/2019 (CW/PW/COLOR) 11:54 AM CDT CORTISOL,60 MIN Routine 02/22/2019 10:39 AM CDT CORTISOL,30 MIN Routine 02/22/2019 9:53 AM CDT CORTISOL,BASELINE Routine 02/22/2019 9:20 AM CDT ACTH STIMULATION Routine 02/22/2019 9:20 AM CDT CBC W/PLT COUNT & AUTO Routine 02/22/2019 DIFFERENTIAL 5:35 AM CDT TACROLIMUS LEVEL Routine 02/22/2019 5:35 AM CDT BASIC METABOLIC PANEL (7) Routine 02/22/2019 5:35 AM CDT CBC W/PLT COUNT & AUTO Routine 02/22/2019 DIFFERENTIAL 5:35 AM CDT TSH Routine 02/22/2019 5:35 AM CDT HEPATIC FUNCTION PANEL Routine 02/22/2019 5:35 AM CDT ECG 12-LEAD Routine 02/21/2019 9:38 PM CDT Procedure Note - Interface, External Ris In - 02/21/2019 9:45 PM CDT Ventricula r Rate 57 BPM Atrial Rate 57 BPM P-R Interval 146 ms QRS Duration 94 ms Q-T Interval 398 ms QTC Calculatio n(Bazett) 387 ms P [place] 63 degrees R [place] 63 degrees T [place] 64 degrees Sinus bradycardi a Nonspecifi c T wave abnormalit y Abnormal ECG When compared with ECG of 19:24, Nonspecifi c T wave abnormalit y, worse in Inferior leads Nonspecifi c T wave abnormalit y now evident in Anterolate ral leads ECG 12-LEAD Routine 02/21/2019 9:38 PM CDT VRE SCREEN Routine 02/21/2019 6:36 PM CDT URINALYSIS W/ REFLEX Routine 02/21/2019 URINE CULTURE 5:01 PM CDT CBC W/PLT COUNT & AUTO Routine 02/21/2019 DIFFERENTIAL 5:01 AM CDT TACROLIMUS LEVEL Routine 02/21/2019 5:01 AM CDT CBC W/PLT COUNT & AUTO Routine 02/21/2019 DIFFERENTIAL 5:01 AM CDT BASIC METABOLIC PANEL (7) Routine 02/21/2019 5:01 AM CDT HEPATIC FUNCTION PANEL Routine 02/21/2019 5:[address] CHEST WITHOUT IV STAT 02/20/2019 CONTRAST 9:21 PM CDT LEGIONELLA URINE ANTIGEN SARAH 02/20/2019 8:31 PM CDT STREP PNEUMONIAE ANTIGEN SARAH 02/20/2019 8:31 PM CDT SPUTUM CULTURE + GRAM Routine 02/20/2019 STAIN 8:30 PM CDT TACROLIMUS LEVEL STAT 02/20/2019 6:34 PM CDT D-DIMER STAT 02/20/2019 6:33 PM CDT RAPID INFLUENZA A&B STAT 02/20/2019 SCREEN 6:20 PM CDT RESPIRATORY PANEL [facility] Add-On 02/20/2019 6:04 PM CDT POCT-LACTIC ACID, VENOUS Routine 02/20/2019 3:02 PM CDT BLOOD CULTURE STAT 02/20/2019 3:02 PM CDT CBC W/PLT COUNT & AUTO STAT 02/20/2019 DIFFERENTIAL 1:14 PM CDT PT/APTT STAT 02/20/2019 1:14 PM CDT HEPATIC FUNCTION PANEL STAT 02/20/2019 1:14 PM CDT TROPONIN I STAT 02/20/2019 1:14 PM CDT B-TYPE NATRIURETIC FACTOR STAT 02/20/2019 (BNP) 1:14 PM CDT BASIC METABOLIC PANEL (7) STAT 02/20/2019 1:14 PM CDT CBC W/PLT COUNT & AUTO STAT 02/20/2019 DIFFERENTIAL 1:14 PM CDT BLOOD CULTURE STAT 02/20/2019 1:13 PM CDT XR CHEST 2 VIEWS STAT 02/20/2019 12:37 PM CDT TRANSFUSE LEUKO-REDUCED Routine 10/17/2018 RED BLOOD CELLS 5:19 PM INTERNAL CONSULTANT TRANSFUSE LEUKO-REDUCED Routine 10/17/2018 RED BLOOD CELLS 5:19 PM INTERNAL CONSULTANT after 04/05/2018 Results * RHYTHM STRIP - SCAN (02/26/2019 9:40 AM CDT) Only the most recent of 2 results within the time period is included. Narrative Performed At * CBC with platelet count + automated diff (02/23/2019 5:34 AM CDT) Only the most recent of 4 results within the time period is included. WBC 4.8 3.5 - 10.5 K/L [facility] RBC 3.58 (L) 3.93 - 5.22 M/L [facility] Hemoglobin 10.5 (L) 11.2 - 15.7 GM/DL [facility] Hematocrit 31.1 (L) 34.1 - 44.9 % [facility] MCV 86.9 79.4 - 94.[address] [facility] MCH 29.3 25.6 - 32.[address] [facility] MCHC 33.8 32.2 - 35.5 GM/DL [facility] RDW 15.5 (H) 11.7 - 14.4 % [facility] Platelets 192 150 - 450 K/CU MM [facility] MPV 11.9 9.4 - 12.[address] [facility] nRBC 0 0 - 0 /[address] [facility] % Neutros 54 % [facility] % Lymphs 24 % [facility] % Monos 8 % [facility] % Eos 12 % [facility] % Baso 0 % [facility] # Neutros 2.58 1.56 - 6.13 K/L [facility] # Lymphs 1.16 (L) 1.18 - 3.74 K/L [facility] # Monos 0.40 (H) 0.24 - 0.36 K/L [facility] # Eos 0.55 (H) 0.04 - 0.36 K/L [facility] # Baso 0.02 0.01 - 0.08 K/L [facility] Immature 2 (H) 0 - 1 % [facility] Granulocytes-Relative [facility] Specimen Blood Performing Organization Address City/[facility] Phone Number [address] * Tacrolimus level (02/23/2019 5:34 AM CDT) Only the most recent of 4 results within the time period is included. Tacrolimus Lvl 7.8 (L) 10.0 - 20.0 ng/mL [facility] Specimen Blood Performing Organization Address City/State/[facility] Phone Number [address] * Hepatic function panel (02/23/2019 5:34 AM CDT) Only the most recent of 4 results within the time period is included. Protein, Total 5.3 (L)Comment: Specimen 6.0 - 8.3 gm/dL [facility] slightly hemolyzed [facility] Albumin 3.5Comment: Specimen slightly 3.5 - 5.0 g/dL [facility] hemolyzed [facility] Total Bilirubin 0.6Comment: Specimen slightly 0.2 - 1.2 mg/dL [facility] Bilirubin, Direct 0.3Comment: Specimen slightly 0.1 - 0.5 mg/dL [facility] Alkaline Phosphatase 68 40 - 150 U/L [facility] AST 13Comment: Specimen slightly 5 - 34 U/L [facility] ALT 7Comment: Specimen slightly 6 - 55 U/L [facility] Specimen Blood Performing Organization Address City/State/Zipcode Phone Number [facility] [address] [place] [address] [facility] * Basic Metabolic Panel (02/23/2019 5:34 AM CDT) Only the most recent of 4 results within the time period is included. Sodium 141 136 - 145 meq/L [facility] Potassium 4.0Comment: Specimen slightly 3.5 - 5.1 meq/L [facility] Chloride 116 (H) 98 - 107 meq/L [facility] CO2 19 (L) 22 - 29 meq/L [facility] BUN 20 7 - 21 mg/dL [facility] Creatinine 0.98Comment: Specimen slightly 0.57 - 1.25 mg/dL [facility] Glucose 105 70 - 105 mg/dL [facility] Calcium 8.5 8.4 - 10.2 mg/dL [facility] EGFR 58Comment: ESTIMATED GFR IS mL/min/1.73 sq m [facility] NOT ACCURATE CREATININE [facility] CLEARANCE IN PREDICTING GLOMERULAR FILTRATION RATE. ESTIMATED GFR IS NOT APPLICABLE FOR DIALYSIS PATIENTS. Specimen Blood Performing Organization Address City/State/Zipcode Phone Number [facility] [address] [place] [address] [facility] * ECHOCARDIOGRAM REPORT - SCAN (02/22/2019 9:21 PM CDT) Narrative Performed At * 2D Echo W/Doppler(CW/PW/Color) (02/22/2019 11:54 AM CDT) Ejection Fraction [facility] Specimen Narrative Performed At Transthoracic Echocardiography Report (TTE) [facility] Demographics [facility] Patient NameFLORES, RINA Date of Study02/22/2019 ST[place] Female Visit [id number] Unknown Room [id number] Number Date of 1960ReferringQubilly Darby Physician Age 59 year(s)SonographerThaddeus Avila Associate Automation Engineer Richard RestrepoprePhysician JajaMD Procedure Type of Study TTE procedure:2DECHO W DOPPLER(CW/PW/COLOR) (Pending Discharge) Indications:Shortness of breath. Clinical History HGB 11.2 HCT 33.7 % CIRRHOSIS PHTN Height: 60 inches Weight: 61.69 kg (136 lbs) BSA: 1.58 m^2 BMI: 26.56 kg/m^2 HR: 59 bpm BP: 101/59 mmHg Summary 1. All of the LV segments contract normally . LVEF by Webb's method of disk assessment is normal (>60%) . 2. Grade 1 diastolic dysfunction (impaired relaxation and low-normal LA pressure). 3. Estimated peak systolic PA pressure is 25-30 mmHg . 4. The right ventricular chamber size and systolic function are within normal limits. Previous Study In comparison with the prior exam on 08-06-15 there are no significant changes. Signature Findings Technical Quality: Technically adequate exam. Left Ventricle The left ventricle is chamber size (by PSLAX dimension) is normal (female - LVIDd 3.8-5.2cm) . Normal LV wall thickness. All of the LV segments contract normally . Global LV systolic function normal . LVEF by Webb's method of disk assessment is normal (>60%) . The LVEF was measured using Webb's bi-plane method of disk . Grade 1 diastolic dysfunction (impaired relaxation and low-normal LA pressure). Left AtriumLA size is mildly enlarged (35-41 ml/m2) . Right VentricleThe right ventricular chamber size and systolic function are within normal limits. Right Atrium RA cavity size is normal . Aortic Valve Normal AoV structure and function. Mitral Valve Mild MV leaflet thickening. Tricuspid ValveTV structure is normal. A trace of tricuspid regurgitation. Estimated peak systolic PA pressure is 25-30 mmHg . Peak systolic pressure may be underestimated; partial TR signal. Pulmonic Valve Normal PV structure and function by limited views and Doppler. A trace of pulmonary regurgitation. AortaAortic root size (SInus of Valsalva diameter) is normal . Proximal ascending aorta size is normal . PericardiumNo significant pericardial effusion is visualized. IVC/SVC/PA/PV/PleuralThe right upper pulmonary vein (RUPV) is normal . The estimated RA pressure by IVC dynamics 5-10mmHg . Chambers/Structures Left Atrium LA Volume: 61.26 ml LA Area: 18.92 cm^2 LA Vol. Index: 39 ml/m^2 Left Ventricle LVIDd: 4.03 cm LV Septum Diastolic: 0.75 cm LV PW Diastolic: 0.8 cm LVEDV Webb's:80.41 ml LV Length: 8.15 cm LVESV Webb's:31.04 ml LVEF Webb's: 61.4 % LVEDVI: 51 ml/m^2 LVESVI: 20 ml/m^2 LVOT Diameter: 1.9 cm Right Atrium RA Vol. (Sngl Plane): 38.47 ml Right Ventricle TAPSE: 1.65 cm Aorta Ao Root S of Leni.: 2.61 cmAscending Aorta: 2.88 cm Doppler/Quantitative Measurements Mitral Valve MV Peak E-Wave: 0.66 m/sMV Peak A-Wave: 0.76 m/s E/A Ratio: 0.86 Peak Gradient: 1.72 mmHg Deceleration Time: 292.3 msec MV Edin. Peak: Tissue Doppler E' Lateral Velocity: 0.09 m/s Aortic Valve Peak Velocity: 1.21 m/sMean Velocity: 0.81 m/s Peak Gradient: 5.82 mmHg Mean Gradient: 3.03 mmHg AV Area (continuity): 2.52 cm^2 AV VTI: 25.32 cm AV DVI: 0.89 LVOT Peak Velocity: 1.1 m/s Peak Gradient: 4.82 mmHg Mean Velocity: 0.7 m/s Mean Gradient: 2.35 mmHg LVOT Diameter: 1.9 cmLVOT VTI: 22.54 cm LVOT Area: 2.84 cm^2 LVOT SV:63.87 ml LVOT CO: 3.77 l/minLVOT CI: 2.39 l/min/m^2 Tricuspid Valve TR Velocity: 2.29 m/s TR Gradient: 21 mmHg Procedure Note Interface, External Ris In - 02/22/2019 4:19 PM CDT Transthoracic Echocardiography Report (TTE) Demographics Patient Name RINA ARIZA Date of Study 02/22/2019 STEW[place] Gender Female Visit Number [id number] Race Unknown Room Number 2531 Number Date of 1960 Referring Tari Darby Physician Age 59 year(s) Notch Machine Operator Thaddeus Avila Associate Automation Engineer Richard Padron Interpreting Shantelle Valdovinos Physician Procedure Type of Study TTE procedure:2DECHO W DOPPLER(CW/PW/COLOR) (Pending Discharge) Indications:Shortness of breath. Clinical History HGB 11.2 HCT 33.7 % CIRRHOSIS PHTN Height: 60 inches Weight: 61.69 kg (136 lbs) BSA: 1.58 m^2 BMI: 26.56 kg/m^2 HR: 59 bpm BP: 101/59 mmHg Summary 1. All of the LV segments contract normally . LVEF by Webb's method of disk assessment is normal (>60%) . 2. Grade 1 diastolic dysfunction (impaired relaxation and low-normal LA pressure). 3. Estimated peak systolic PA pressure is 25-30 mmHg . 4. The right ventricular chamber size and systolic function are within normal limits. Previous Study In comparison with the prior exam on 08-06-15 there are no significant changes. Signature Findings Technical Quality: Technically adequate exam. Left Ventricle The left ventricle is chamber size (by PSLAX dimension) is normal (female - LVIDd 3.8-5.2cm) . Normal LV wall thickness. All of the LV segments contract normally . Global LV systolic function normal . LVEF by Webb's method of disk assessment is normal (>60%) . The LVEF was measured using Webb's bi-plane method of disk . Grade 1 diastolic dysfunction (impaired relaxation and low-normal LA pressure). Left Atrium LA size is mildly enlarged (35-41 ml/m2) . Right Ventricle The right ventricular chamber size and systolic function are within normal limits. Right Atrium RA cavity size is normal . Aortic Valve Normal AoV structure and function. Mitral Valve Mild MV leaflet thickening. Tricuspid Valve TV structure is normal. A trace of tricuspid regurgitation. Estimated peak systolic PA pressure is 25-30 mmHg . Peak systolic pressure may be underestimated; partial TR signal. Pulmonic Valve Normal PV structure and function by limited views and Doppler. A trace of pulmonary regurgitation. Aorta Aortic root size (SInus of Valsalva diameter) is normal . Proximal ascending aorta size is normal . Pericardium No significant pericardial effusion is visualized. IVC/SVC/PA/PV/Pleural The right upper pulmonary vein (RUPV) is normal . The estimated RA pressure by IVC dynamics 5-10mmHg . Chambers/Structures Left Atrium LA Volume: 61.26 ml LA Area: 18.92 cm^2 LA Vol. Index: 39 ml/m^2 Left Ventricle LVIDd: 4.03 cm LV Septum Diastolic: 0.75 cm LV PW Diastolic: 0.8 cm LVEDV Webb's:80.41 ml LV Length: 8.15 cm LVESV Webb's:31.04 ml LVEF Webb's: 61.4 % LVEDVI: 51 ml/m^2 LVESVI: 20 ml/m^2 LVOT Diameter: 1.9 cm Right Atrium RA Vol. (Sngl Plane): 38.47 ml Right Ventricle TAPSE: 1.65 cm Aorta Ao Root S of Leni.: 2.61 cm Ascending Aorta: 2.88 cm Doppler/Quantitative Measurements Mitral Valve MV Peak E-Wave: 0.66 m/s MV Peak A-Wave: 0.76 m/s E/A Ratio: 0.86 Peak Gradient: 1.72 mmHg Deceleration Time: 292.3 msec MV Edin. Peak: Tissue Doppler E' Lateral Velocity: 0.09 m/s Aortic Valve Peak Velocity: 1.21 m/s Mean Velocity: 0.81 m/s Peak Gradient: 5.82 mmHg Mean Gradient: 3.03 mmHg AV Area (continuity): 2.52 cm^2 AV VTI: 25.32 cm AV DVI: 0.89 LVOT Peak Velocity: 1.1 m/s Peak Gradient: 4.82 mmHg Mean Velocity: 0.7 m/s Mean Gradient: 2.35 mmHg LVOT Diameter: 1.9 cm LVOT VTI: 22.54 cm LVOT Area: 2.84 cm^2 LVOT SV:63.87 ml LVOT CO: 3.77 l/min LVOT CI: 2.39 l/min/m^2 Tricuspid Valve TR Velocity: 2.29 m/s TR Gradient: 21 mmHg Performing Organization Address City/State/Zipcode Phone Number [facility] * CORTISOL,60 MIN (02/22/2019 10:39 AM CDT) Cortisol, Baseline 7.4 mcg/dL [facility] Cortisol 30 minute 13.4 mcg/dL [facility] Cortisol, 60 Minute 9.9 ug/dL [facility] Specimen Blood Narrative Performed At ACTH STIMULATION TEST INTERPRETATION GUIDELINES [facility] (Synonyms: Cortrosyn Test, Cosyntropin or Corticotropin Stimulation Test) [facility] Adenocorticotropic hormone (ACTH)is a tropic hormone, made in the pituitary gland, which travels trhough the bloodstream and stimulates the cortex of the adrenal glands to release cortisol. Cortisol is a primary hormone, which aids the body's metabolism of fats, carbohydrates, and protein as well as sodium and potassium regulation. ACTH Stimulation Test: Exogenous administration of biologically active ACTH stimulates the secretion of cortisol from the adrenal gland. This test is used to evaluate adrenal function by measuring cortisol levels at baseline and at 30 and 60 minutes after the administration of 250 micrograms of cosyntropin (Cortrosyn). Patients who have received exogenous corticosteroids immediately prior to performing the ACTH Stimulation Test will often have elevated baseline cortisol levels, which may lead to erroneous interpretation of test results. The notable exception is with dexamethasone. Normal Response: An increase in cortisol after stimulation by ACTH is normal. Post-stimulation cortisol concentration should be greater than 20 mcg/dL or the rate of rise from baseline cortisol should be greater than or equal to 9 mcg/dL. Patients with sepsis or septic shock: According to a study by Kylie et al (MEGHAN 2000,283(8):1038-45), the ACTH Stimulation Test provides important prognostic information. This study defined 3 groups of patients with sepsis or septic shock: 1. Good Survival: Low basal cortisol (<or=34 mcg/dL) and high ACTH response (>9mcg/dL) 2.Intermediate Survival: Low basal cortisol (<34 mcg/dL) and low response to ACTH (<or=9 mcg/dL) OR High basal cortisol (>34 mcg/dL) or high ACTH response (>9 mcg/dL) 3.Poor Survival: High basal cortisol (>34 mcg/dL) and low ACTH response (<or=9 mcg/dL). Treatment of patients with relative adrenal dysfunction may be indicated based on test results and the clinical condition of the patient. Additional information, including treatment recommendations, is available in critically ill patients, approved by the Pharmacy, Nutrition, and Therapeutics Committee on 08/19/2004 and available through the Pharmacy Policy and Procedure Section on The Source. Do not run this test if systemic hydrocortisone, methylprednisolone, prednisolone or prednisone has been administered within the past 24 hours. Draw baseline cortisol level just prior to cosyntropin administration. Administer cosyntropin 1 mcg/mL via slow IV push over a period of 2 minutes.Flush the line after the dose to ensure the entire dose is delivered. Draw serum cortisol level 30 minutes after cosyntropin administration. Draw serum cortisol level 60 minutes after cosyntropin administration. Performing Organization Address City/State/Zipcode Phone Number [facility] [address] [place] [address] [facility] * CORTISOL,30 MIN (02/22/2019 9:53 AM CDT) Cortisol, Baseline 7.4 mcg/dL [facility] Cortisol, 30 Minute 13.4 ug/dL [facility] Specimen Blood Narrative Performed At ACTH STIMULATION TEST INTERPRETATION GUIDELINES [facility] (Synonyms: Cortrosyn Test, Cosyntropin or Corticotropin Stimulation Test) [facility] Adenocorticotropic hormone (ACTH)is a tropic hormone, made in the pituitary gland, which travels trhough the bloodstream and stimulates the cortex of the adrenal glands to release cortisol. Cortisol is a primary hormone, which aids the body's metabolism of fats, carbohydrates, and protein as well as sodium and potassium regulation. ACTH Stimulation Test: Exogenous administration of biologically active ACTH stimulates the secretion of cortisol from the adrenal gland. This test is used to evaluate adrenal function by measuring cortisol levels at baseline and at 30 and 60 minutes after the administration of 250 micrograms of cosyntropin (Cortrosyn). Patients who have received exogenous corticosteroids immediately prior to performing the ACTH Stimulation Test will often have elevated baseline cortisol levels, which may lead to erroneous interpretation of test results. The notable exception is with dexamethasone. Normal Response: An increase in cortisol after stimulation by ACTH is normal. Post-stimulation cortisol concentration should be greater than 20 mcg/dL or the rate of rise from baseline cortisol should be greater than or equal to 9 mcg/dL. Patients with sepsis or septic shock: According to a study by Kylie et al (MEGHAN 2000,283(8):6895-45), the ACTH Stimulation Test provides important prognostic information. This study defined 3 groups of patients with sepsis or septic shock: 1. Good Survival: Low basal cortisol (<or=34 mcg/dL) and high ACTH response (>9mcg/dL) 2.Intermediate Survival: Low basal cortisol (<34 mcg/dL) and low response to ACTH (<or=9 mcg/dL) OR High basal cortisol (>34 mcg/dL) or high ACTH response (>9 mcg/dL) 3.Poor Survival: High basal cortisol (>34 mcg/dL) and low ACTH response (<or=9 mcg/dL). Treatment of patients with relative adrenal dysfunction may be indicated based on test results and the clinical condition of the patient. Additional information, including treatment recommendations, is available in critically ill patients, approved by the Pharmacy, Nutrition, and Therapeutics Committee on 08/19/2004 and available through the Pharmacy Policy and Procedure Section on The Source. Do not run this test if systemic hydrocortisone, methylprednisolone, prednisolone or prednisone has been administered within the past 24 hours. Draw baseline cortisol level just prior to cosyntropin administration. Administer cosyntropin 1 mcg/mL via slow IV push over a period of 2 minutes.Flush the line after the dose to ensure the entire dose is delivered. Draw serum cortisol level 30 minutes after cosyntropin administration. Draw serum cortisol level 60 minutes after cosyntropin administration. Performing Organization Address City/State/Zipcode Phone Number [place] [phone] [facility] * CORTISOL,BASELINE (02/22/2019 9:20 AM CDT) Cortisol, Baseline 7.4 ug/dL [facility] Specimen Blood Narrative Performed At ACTH STIMULATION TEST INTERPRETATION GUIDELINES [facility] (Synonyms: Cortrosyn Test, Cosyntropin or Corticotropin Stimulation Test) [facility] Adenocorticotropic hormone (ACTH)is a tropic hormone, made in the pituitary gland, which travels trhough the bloodstream and stimulates the cortex of the adrenal glands to release cortisol. Cortisol is a primary hormone, which aids the body's metabolism of fats, carbohydrates, and protein as well as sodium and potassium regulation. ACTH Stimulation Test: Exogenous administration of biologically active ACTH stimulates the secretion of cortisol from the adrenal gland. This test is used to evaluate adrenal function by measuring cortisol levels at baseline and at 30 and 60 minutes after the administration of 250 micrograms of cosyntropin (Cortrosyn). Patients who have received exogenous corticosteroids immediately prior to performing the ACTH Stimulation Test will often have elevated baseline cortisol levels, which may lead to erroneous interpretation of test results. The notable exception is with dexamethasone. Normal Response: An increase in cortisol after stimulation by ACTH is normal. Post-stimulation cortisol concentration should be greater than 20 mcg/dL or the rate of rise from baseline cortisol should be greater than or equal to 9 mcg/dL. Patients with sepsis or septic shock: According to a study by Kylie et al (MEGHAN 2000,283(8):1038-45), the ACTH Stimulation Test provides important prognostic information. This study defined 3 groups of patients with sepsis or septic shock: 1. Good Survival: Low basal cortisol (<or=34 mcg/dL) and high ACTH response (>9mcg/dL) 2.Intermediate Survival: Low basal cortisol (<34 mcg/dL) and low response to ACTH (<or=9 mcg/dL) OR High basal cortisol (>34 mcg/dL) or high ACTH response (>9 mcg/dL) 3.Poor Survival: High basal cortisol (>34 mcg/dL) and low ACTH response (<or=9 mcg/dL). Treatment of patients with relative adrenal dysfunction may be indicated based on test results and the clinical condition of the patient. Additional information, including treatment recommendations, is available in critically ill patients, approved by the Pharmacy, Nutrition, and Therapeutics Committee on 08/19/2004 and available through the Pharmacy Policy and Procedure Section on The Source. Do not run this test if systemic hydrocortisone, methylprednisolone, prednisolone or prednisone has been administered within the past 24 hours. Draw baseline cortisol level just prior to cosyntropin administration. Administer cosyntropin 1 mcg/mL via slow IV push over a period of 2 minutes.Flush the line after the dose to ensure the entire dose is delivered. Draw serum cortisol level 30 minutes after cosyntropin administration. Draw serum cortisol level 60 minutes after cosyntropin administration. Performing Organization Address City/State/Zipcode Phone Number [facility] [address] [place] [address] MED[facility]ENTER * TSH (02/22/2019 5:35 AM CDT) TSH 0.98 0.35 - 4.94 uIU/mL [facility] Specimen Blood Performing Organization Address City/State/[facility] Phone Number [facility] [address] [place] [address] [facility] * ECG 12 lead (02/21/2019 9:38 PM CDT) Specimen Narrative Performed At Ventricular Rate 57 BPM GE MUSE Atrial Rate 57 BPM P-R Interval 146 ms QRS Duration 94 ms Q-T Interval 398 ms QTC Calculation(Bazett) 387 ms P [place] 63 degrees R [place] 63 degrees T [place] 64 degrees Sinus bradycardia Nonspecific T wave abnormality Abnormal ECG When compared with ECG of 24-AUG-2015 19:24, Nonspecific T wave abnormality, worse in Inferior leads Nonspecific T wave abnormality now evident in Anterolateral leads Confirmed by MD MONSE, JENNIFER ([id number]) on 02/22/2019 11:47:08 AM Procedure Note Interface, External Ris In - 02/22/2019 11:47 AM CDT Ventricular Rate 57 BPM Atrial Rate 57 BPM P-R Interval 146 ms QRS Duration 94 ms Q-T Interval 398 ms QTC Calculation(Bazett) 387 ms P [place] 63 degrees R [place] 63 degrees T [place] 64 degrees Sinus bradycardia Nonspecific T wave abnormality Abnormal ECG When compared with ECG of 24-AUG-2015 19:24, Nonspecific T wave abnormality, worse in Inferior leads Nonspecific T wave abnormality now evident in Anterolateral leads Confirmed by MD SHEA RUPA ([id number]) on 02/22/2019 11:47:08 AM Performing Organization Address [facility] Phone Number GE MUSE * VRE screen (02/21/2019 6:36 PM CDT) Result No vancomycin-resistant [facility] Enterococcus isolated [facility] Specimen Other Performing Organization Address City/[facility]/Zipcode Phone Number [facility] [address] [place] [address] [facility] * Urinalysis w/Microscopic + Reflex to Culture (02/21/2019 5:01 PM CDT) Color, UA Yellow [facility] Clarity, UA Clear [facility] Specific [place], UA 1.016 1.001 - 1.035 [facility] pH, UA 6.0 5.0 - 8.0 [facility] Protein, UA 10 mg/dL (A) Negative [facility] Glucose, UA Negative Negative [facility] Ketones, UA Negative Negative [facility] Bilirubin, UA Negative Negative [facility] Blood, UA Negative Negative [facility] Nitrite, UA Negative Negative [facility] Leukocytes, UA Negative Negative [facility] Urobilinogen, UA 0.2 0.2 - 1.0 mg/dL [facility] RBC, UA 0 /HPF [facility] WBC, UA 1 /HPF [facility] Mucus Rare [facility] Squam Epithel, UA 1 /HPF [facility] Specimen Source [facility] Specimen Urine Performing Organization Address City/State/Zipcode Phone Number [facility] [address] [place] [address] [facility] * CT chest without IV contrast (02/20/2019 9:21 PM CDT) Specimen Narrative Performed At FINAL REPORT [facility] CT, CHEST, WITHOUT CONTRAST INDICATION: Shortness of breath COMPARISON: None TECHNIQUE:Axially oriented images were obtained from the thoracic [...] minimal discoid consolidations. No effusion or pneumothorax. Central airways: Patent. Mediastinum: No adenopathy. Heart and pericardium: Trace pericardial effusion. Heart size is normal. Great vessels: Normal calibers. Included upper abdomen: Small hiatal hernia.Partially imaged subxiphoid ventral hernia containing bowel loop. Regional skeletal structures: Intact. Additional findings: Multinodular thyroid with dominant right lobe 6 mm and left lobe 1 cm nodule. IMPRESSION: Bibasilar and left upper lobe peribronchial opacities suggestive of multifocal pneumonia or possibly pulmonary edema. Follow-up to ensure complete resolution. Small hiatal hernia. Partially imaged abdominal ventral hernia. Multinodular thyroid. Dominant left lobe 1 cm nodule does not meet size criteria for further imaging workup recommendations. No additional imaging workup recommended. Signed: Gaston Ohara MD Report Verified Date/Time:02/20/2019 21:42:47 Procedure Note Interface, External Ris In - 02/20/2019 9:[address]AL REPORT CT, CHEST, WITHOUT CONTRAST INDICATION: Shortness [...] minimal discoid consolidations. No effusion or pneumothorax. Central airways: Patent. Mediastinum: No adenopathy. Heart and pericardium: Trace pericardial effusion. Heart size is normal. Great vessels: Normal calibers. Included upper abdomen: Small hiatal hernia.Partially imaged subxiphoid ventral hernia containing bowel loop. Regional skeletal structures: Intact. Additional findings: Multinodular thyroid with dominant right lobe 6 mm and left lobe 1 cm nodule. IMPRESSION: Bibasilar and left upper lobe peribronchial opacities suggestive of multifocal pneumonia or possibly pulmonary edema. Follow-up to ensure complete resolution. Small hiatal hernia. Partially imaged abdominal ventral hernia. Multinodular thyroid. Dominant left lobe 1 cm nodule does not meet size criteria for further imaging workup recommendations. No additional imaging workup recommended. Signed: Gaston Ohara MD Report Verified Date/Time: 02/20/2019 21:42:47 Performing Organization Address City/State/Zipcode Phone Number [facility] * Strep pneumoniae urine antigen (02/20/2019 8:31 PM CDT) Strep pneumoniae Antigen Presumptive negative for Presumptive negative for [facility] pneumococcal pneumonia - see pneumococcal pneumonia - [facility] comment see comment, Presumptive negative for pneumococcal meningitis - see comment Specimen Urine Narrative Performed At Presumptive negative for pneumococcal pneumonia, suggesting no current or recent [facility] pneumococcal infection. Infection due to S. pneumoniae cannot be ruled out since [facility] the antigen present in the sample may be below the detection limit of the test. Performing Organization Address City/[facility] Phone Number [address] * Legionella antigen, urine (02/20/2019 8:31 PM CDT) Legionella Urine Antigen Negative - see commentComment: [facility] Negative for L. pneumophila [facility] serogroup 1 antigen, suggesting no recent or current infection with this serogroup. Legionellosis cannot be ruled out since other serogroups and species may cause disease. Specimen Urine Performing Organization Address [facility] Phone Number [address] * Sputum Culture + Gram Stain (02/20/2019 8:30 PM CDT) Result 1+ Normal respiratory johanny [facility] Gram Stain Result 1+ WBCs [facility] Gram Stain Result 0-[address] [facility] Gram Stain Result No organisms seen [facility] Specimen Sputum - Expectorated Performing Organization Address City/[facility] [place] [address] [phone] [place] [address] * D-dimer (02/20/2019 6:33 PM CDT) D-Dimer, Quant 0.29 <0.50 MG/L FEU [facility] Specimen Blood Narrative Performed At Intended Use: The D-Dimer Assay can be used to aid in the diagnosis of Deep Vein [facility] Thrombosis (DVT) and Pulmonary Embolism Disease (PED). [facility] In patients with low pre-test probability, various studies concerning STA Liatest D-dimer test have reported that with a cutoff value of 0.50 MG/L FEU, the Negative Predictive Value (NPV) regarding the exclusion of thrombosis is within 95-100% range. Performing Organization Address [facility] Phone Number [address] [address] [facility] * Rapid Influenza A&B Screen (02/20/2019 6:20 PM CDT) Rapid Influenza A Antigen Negative Negative, Inconclusive [facility] Rapid influenza B Antigen Negative Negative, Inconclusive [facility] Specimen Nasal Performing Organization Address [facility] Phone Number [address] [address] [phone] [place] [address] * Respiratory Panel [facility] (02/20/2019 6:04 PM CDT) Human Metapneumovirus Not detected Not detected, Equivocal [facility] Rhinovirus Not detected Not detected, Equivocal [facility] Influenza A Not detected Not detected, Equivocal [facility] INFLUENZA A (NO SUBTYPE) Not detected, Equivocal [facility] Influenza A subtype H1 Not detected, Equivocal [facility] Influenza A Subtype H3 Not detected, Equivocal [facility] Influenza A Subtype Not detected, Equivocal [facility] H1-2009 [facility] Influenza B Not detected Not detected, Equivocal [facility] Respiratory Syncytial Not detected Not detected, Equivocal [facility] Virus [facility] Parainfluenza Virus 1 Not detected Not detected, Equivocal [facility] Parainfluenza Virus 2 Not detected Not detected, Equivocal [facility] Parainfluenza virus 3 Not detected Not detected, Equivocal [facility] Parainfluenza Virus 4 Not detected Not detected, Equivocal [facility] Adenovirus Not detected Not detected, Equivocal [facility] Coronavirus 229E Not detected Not detected, Equivocal [facility] Coronavirus HKU1 Not detected Not detected, Equivocal [facility] Coronavirus NL63 Not detected Not detected, Equivocal [facility] Coronavirus OC43 Not detected Not detected, Equivocal [facility] Bordetella Pertussis Not detected Not detected, Equivocal [facility] Chlamydophila Pneumoniae Not detected Not detected, Equivocal [facility] Mycoplasma Pneumoniae Not detected Not detected, Equivocal [facility] Specimen Nasopharyngeal Narrative Performed At Other viruses and bacteria not targeted by this PCR panel cannot be excluded; [facility] therefore clinical correlation and follow up of serology, culture results, and [facility] other molecular studies is required. The results are not intended to be used as the sole means for clinical diagnosis or patient management decisions. This sample was tested at the [facility] using the [employer] FilmArray Respiratory Panel. It is FDA cleared and has been verified and approved by the [facility] for clinical use on nasopharyngeal swab specimens. The performance of the FilmArray RP has not been established in individuals who received influenza vaccine.Recent administration of a nasal influenza vaccine may cause false positive results for Influenza A and/or Influenza B. Performing Organization Address [facility] Phone Number [address] [address] [facility] * POC-Lactic Acid, Venous (02/20/2019 3:02 PM CDT) POC-Lactic Acid, Venous 0.5 (L)Comment: TESTED AT 0.9 - 1.7 mmol/L [address] [address] Specimen Blood Performing Organization Address [facility] Phone Number [address] [address] [facility] * Blood culture (02/20/2019 3:02 PM CDT) Only the most recent of 2 results within the time period is included. Result No growth in [address] [facility] Specimen Blood Performing Organization Address City/State/Zipcode Phone Number [facility] [address] [place] [address] [facility] * PT/aPTT (02/20/2019 1:14 PM CDT) Protime 14.9 (H) 11.9 - 14.[address] [facility] INR 1.2 <=[address]9 [facility] PTT 37.2 (H) 22.5 - 36.[address] [facility] Specimen Blood Narrative Performed At Effective 02/05/2019: PT Reference Range Change [facility] New: 11.9-14.2Previous: 11.7-14.7 [facility] RECOMMENDED COUMADIN/WARFARIN INR THERAPY RANGES STANDARD DOSE: 2.0-3.0Includes: PROPHYLAXIS for venous thrombosis, systemic embolization; TREATMENT for venous thrombosis and/or pulmonary embolus. HIGH RISK: Target INR is 2.5-3.5 for patients wiht mechanical heart valves. Performing Organization Address City/[facility] Phone Number [address] [address] [facility] * Troponin I (02/20/2019 1:14 PM CDT) Troponin I <0.01 0.00 - 0.03 ng/mL [facility] Specimen Blood Narrative Performed At Troponin I (TnI) levels must be interpreted in the context of the presenting [facility] symptoms and the clinical findings. Elevated TnI levels indicate myocardial [facility] damage, but are not specific for ischemic heart disease. Elevated TnI levels are seen in patients with other cardiac conditions (including myocarditis and congestive heart failure), and slight TnI elevations occur in patients with other conditions, including sepsis, renal failure, acidosis, acute neurological disease, and persistent tachyarrhythmia. Performing Organization Address City/State/Zipcode Phone Number [place] [phone] [place] [address] [facility] * B-type Natriuretic Factor (BNP) (02/20/2019 1:14 PM CDT) BNP 36 0 - 100 pg/mL [facility] Specimen Blood Performing Organization Address City/State/Zipcode Phone Number [facility] [address] [place] [address] [facility] * XR chest 2 views (02/20/2019 12:37 PM CDT) Specimen Narrative Performed At FINAL REPORT [facility]IS Chest, 2 views, 02/20/2019 12:51 PM. History: Pneumonia, liver transplant. Comparison: 07/27/2016. Discussion:The cardiomediastinal silhouette and pulmonary vasculature are within normal limits. Linear opacities are present at the lung bases. The lungs are otherwise clear without evidence of consolidation or effusion.There are no acute osseous abnormalities. The soft tissues are unremarkable. IMPRESSION: Bibasilar atelectasis. Signed: Clayton Gan MD Report Verified Date/Time:02/20/2019 12:54:47 Reading Location: [facility] B1 [id number] Consult Reading Room Procedure Note Interface, External Ris In - 02/20/2019 12:56 PM CDT FINAL REPORT Chest, 2 views, 02/20/2019 12:51 PM. History: Pneumonia, liver transplant. Comparison: 07/27/2016. Discussion: The cardiomediastinal silhouette and pulmonary vasculature are within normal limits. Linear opacities are present at the lung bases. The lungs are otherwise clear without evidence of consolidation or effusion. There are no acute osseous abnormalities. The soft tissues are unremarkable. IMPRESSION: Bibasilar atelectasis. Signed: Clayton Gan MD Report Verified Date/Time: 02/20/2019 12:54:47 Reading Location: [facility] B1 [id number] Consult Reading Room Performing Organization Address City/[facility]/Zipcode Phone Number RIS * Transfuse leuko-red RBC (10/17/2018 5:19 PM INTERNAL CONSULTANT) Only the most recent of 2 results within the time period is included. after 04/05/2018 Insurance Payer Benefit Subscriber ID Type Phone Address Plan / Group [employer] K[employer]ARE xxxxxxxxxxx MEDICARE ADV AETNA - MGD CARE AETNA xxxxxxxxxx Comm INDEMNITY NON CONTR Advance Directives For more information, please contact: [address] [address] Date Inactivated Comments Code Status Date Activated 02/23/2019 3:50 PM Full Code 02/20/2019 5:20 PM This code status was determined by: Patient 08/25/2015 2:49 PM Full Code 08/24/2015 10:53 PM This code status was determined by: Patient 08/05/2015 12:02 AM Full Code 08/02/2015 11:45 AM This code status was determined by: Patient 07/26/2015 7:16 PM Full Code 07/17/2015 2:51 PM This code status was determined by: Patient 07/17/2015 2:51 PM Full Code 07/13/2015 2:35 PM This code status was determined by: Patient
[2019-04-06] MEDS ORDERED: ONDANSETRON HCL INJ 2MG/ML 2ML 2 MG/ML VIAL IV ONE (12:04)
[2019-04-06] MEDS ORDERED: CEFTRIAXONE SOD 1 GM/NS 50 ML 50 ML IV ONE ×2 (12:15→12:41)
[2019-04-06] MEDS ORDERED: ONDANSETRON HCL INJ 2MG/ML 2ML 2 MG/ML VIAL ONE (12:41)
== END 2019-04-06 12:49 | disposition home or self-care (01) ==
LOC: FSED 11:47
DX: N10 Acute pyelonephritis (principal); R31.9 Hematuria, unspecified; Z94.4 Liver transplant status; D89.9 Disorder involving the immune mechanism, unspecified
CPT/HCPCS: 80053; 81003; 85025; 99283; J0696; J2405

== ENCOUNTER 2020-08-06 11:34 | Emergency (ER) | payer MEDICARE, OTHER ==
[~2020-08-06] VITALS: Ht 152.4 cm; Wt 79.1 kg
--- NOTE | 2020-08-06 11:53 | Emergency Department Note ---
History of Present Illnes History of Present Illness Chief Complaint: Genitourinary History of Present Illness This is a 60 year old female with dysuria since this AM. Denies f/c/ n/v. H/O of organ transplant . Historian: Patient Arrival Mode: Car Onset (how long ago): day(s) (1) Severity: mild Onset quality: gradual Duration (how long): hour(s) Timing of current episode: constant Progression: unchanged Chronicity: new Context: Denies recent illness, Denies recent surgery, Denies recent immobilization, Denies recent travel, Denies trauma/injury, Denies new medications, Denies hx of DVT/PE, Denies non-compliance w/ medications, Denies other Relieving factors: none Exacerbating factors: none Associated symptoms: Reports denies other symptoms; Denies confusion, Denies chest pain, Denies cough, Denies diaphoresis, Denies fever/chills, Denies headaches, Denies loss of appetite, Denies malaise, Denies nausea/vomiting, Denies rash, Denies seizure, Denies shortness of breath, Denies syncope, Denies weakness, Denies other Treatments prior to arrival: none Past Medical/Family History Physician Review I have reviewed the patient's past medical and family history. Any updates have been documented here. Past Medical History Recent Fever: No Clinical Suspicion of Infectio: Yes Past Medical History: Liver Disease Other Medical History: AUTO IMMUNE HEPATITIS (LIVER TRANSPLANT 2014) Past Surgical History: Cholecysctectomy, T&A, Tubal Ligation Other Surgery: LIVER TRANSPLANT 2014 [facility] Social History Smoking Cessation: Never Smoker Alcohol Use: None Any Illegal Drug Use: No Review of Systems Review of Systems Constitutional: Reports no symptoms EENTM: Reports no symptoms Cardiovascular: Reports no symptoms Respiratory: Reports no symptoms Gastrointestinal: Reports no symptoms Genitourinary: Reports dysuria, Reports frequency, Reports pain Musculoskeletal: Reports no symptoms Integumentary: Reports no symptoms Neurological: Reports no symptoms Psychological: Reports no symptoms Endocrine: Reports no symptoms Hematological/Lymphatic: Reports no symptoms Physical Exam Related Data Allergies: Coded Allergies: sulfamethoxazole (Verified Allergy, Unknown, 04/06/19) trimethoprim (Verified Allergy, Unknown, 04/06/19) Triage Vital Signs Vital Signs Date Time Temp Pulse Resp B/P (MAP) Pulse Ox O2 Delivery O2 Flow Rate FiO2 11/27/20 11:37 98.1 64 16 112/67 98 Room Air Vital signs reviewed: Yes Physical Exam CONSTITUTIONAL Constitutional: Present well-developed, Present well-nourished HENT HENT: Present normocephalic, Present atraumatic, Present oropharynx clear/moist, Present nose normal HENT L/R: Present left ext ear normal, Present right ext ear normal EYES Eyes: Reports PERRL, Reports conjunctivae normal NECK Neck: Present ROM normal PULMONARY Pulmonary: Present effort normal, Present breath sounds normal CARDIOVASCULAR Cardiovascular: Present regular rhythm, Present heart sounds normal, Present capillary refill normal, Present normal rate GASTROINTESTINAL Abdominal: Present soft, Present nontender, Present bowel sounds normal GENITOURINARY Genitourinary: Present exam deferred SKIN Skin: Present warm, Present dry MUSCULOSKELETAL Musculoskeletal: Present ROM normal NEUROLOGICAL Neurological: Present alert, Present oriented x 3, Present no gross motor or sensory deficits PSYCHOLOGICAL Psychological: Present mood/affect normal, Present judgement normal Results Laboratory Lab results reviewed: Yes Laboratory comments UA : trace blood, small leukocytes Assessment & Plan Medical Decision Making MDM Diff Dx : UTI, pyelonephritis, kidney stone Assessment & Plan Final Impression: (1) UTI (urinary tract infection) Depart Disposition: HOME, SELF-long-term Meds Reported Medications Alendronate Sodium (ALENDRONATE SODIUM) 70 Mg Tablet 08/06/20 Pantoprazole Sodium (PROTONIX) 20 Mg Tablet.dr, 20 MG PO DAILY, #30 TAB 08/06/20 Mycophenolate Mofetil (CELLCEPT) 250 Mg Cap 08/06/20 Tacrolimus (PROGRAF) 1 Mg Cap, 1 MG PO BID, CAP 08/06/20 MALCOLM CHOU DO Aug 06, 2020 11:53
--- OUTSIDE RECORDS SUMMARY | 2020-08-06 12:11 | XMS REPORT | Clinical Summary ---
Author Author [facility] Address Unknown Phone Unavailable Care Team Providers Care Top Frame Fitter Name Role Phone Stephon Pink MD PCP Demario Chamberlain 30 Unavailable Allergies Comments Active Allergy Reactions Severity [...] times daily as needed for Diarrhea. Active albuterol (PROVENTIL) 2.5 Take 3 mLs 360 mL 1 mg /3 mL (0.083 %) (2.5 mg 9 nebulizer solution total) by nebulization 4 (four) times daily. Additional Information Patient taking differently: 2.5 mg Nebulization As needed, Reason: Changed by Provider, Reported on 07/21/2020 11:10 AM Active mycophenolate (CELLCEPT) TAKE 1 60 capsule 5 0 250 mg capsule CAPSULE (250 0 MG TOTAL) BY MOUTH 2 (TWO) TIMES DAILY. Active ascorbic acid/collagen Take 2 0 hydr (ASCORBIC capsules by ACID-COLLAGEN ORAL) mouth daily. Active ascorbic acid, vitamin C, Take 500 mg 0 (ascorbic acid with sweta by mouth hips) 500 MG tablet daily. Active multivitamin capsule Take 1 0 capsule by mouth daily. 07/21/2020 Discontinued (Med History: P atient Reported Med no longer taking) oxybutynin (DITROPAN-XL) Take 10 mg by 0 10 MG 24 hr tablet mouth daily. 07/21/2020 Discontinued (Med History: E rroneous Entry) miscellaneous medical Nebulizer 1 each 0 02/08 supply Misc machine with 9 all accessories. 07/21/2020 Discontinued (Med History: P atient Reported Med no longer taking) furosemide (LASIX) 20 MG Take 1 tablet 10 tablet 0 tablet (20 mg total) 9 by mouth daily as needed (For leg swelling). 07/21/2020 Discontinued (Med History: P atient Reported Med no longer taking) acetaminophen (TYLENOL) Take 325 mg 0 325 MG tablet by mouth every 6 (six) hours as needed for Pain. 07/23/2020 tacrolimus (PROGRAF) 1 MG Take 2 120 capsule 11 capsule capsules (2 9 mg total) by mouth 2 (two) times daily. 07/21/2020 Discontinued (Duplicate Ther apy) mycophenolate (CELLCEPT) Take 1 60 capsule 11 1 250 mg capsule capsule (250 9 mg total) by mouth 2 (two) times daily. Active Problems Problem Noted Date Multinodular goiter 02/23/2019 Chronic diastolic heart failure 02/23/2019 Hypotension 02/22/2019 Sleep apnea 02/21/2019 Possible Pneumonia due to gram-negative bacteria Bradycardia, sinus 02/21/2019 Urine incontinence 02/21/2019 Acute dyspnea 02/20/2019 CKD (chronic kidney disease) stage 2, GFR 60-89 ml/mi n 02/20/2019 Gastroesophageal reflux disease without esophagitis 02/20/2019 Immunocompromised state 02/20/2019 Bilateral atelectasis 02/20/2019 Ventral incisional hernia 10/04/2015 Last Assessment & Plan: Patient without pain or erythema. No d esire for cosmetic correction. Will continue to follow, and correct if jae ent has symptoms suggestive of obstruction or ischemia, or if cosmetic correction desired. H/O liver transplant 08/24/2015 Last Assessment & Plan: Good allograft function, no signs of re jection. Continue to monitor. Screening for malignant neoplasm 08/05/2013 Last Assessment & Plan: CT triple phase from April 2013 found no concerning lesions. Repeat in October 2013. Hepatitis, autoimmune 04/24/2013 Last Assessment & Plan: Her symptoms are controlled at this [facility] Care Team Description Date Type Specialty Nusrat Jeter MD Immunocompromised state (HCC) (Primary D x); Hepatitis, autoimmune (HCC); H/O liver transplant (HCC) 07/22/2020 Video - Transplant Hepatolo gy Telemedicine Juan, Jolene 07/22/2020 Documentation Transplant Cyndi Bassett, YOANDY 07/21/2020 Orders Only Transplant Cyndi Bassett, greeter Management 07/21/2020 Telephone Transplant Cyndi Bassett, greeter Management 07/20/2020 Telephone Transplant Hepatolo gy Juan, Jolene 06/09/2020 Documentation Transplant Hepatolo gy Juan, Jolene 06/02/2020 Documentation Transplant Hepatolo gy Juan, Jolene Labs Only (SPK W PTN RE: LAB/RX RESULTS; NO MED CHANGES; REPEAT BLD WK X4 MTHS; 09/28/2020; K/S; GGT;) 05/31/2020 Telephone Transplant Hepatolo gy Juan, Jolene 05/31/2020 Documentation Transplant Hepatolo gy Juan, Jolene 05/31/2020 Documentation Transplant Hepatolo gy Juan, Jolene 05/07/2020 Documentation Transplant Cyndi Bassett, YOANDY Follow-up 05/05/2020 Telephone Transplant Cyndi Bassett, RN H/O liver transplant (HCC) (Primary Dx); Hepatitis, autoimmune (HCC); Immunocompromised state (HCC); Screening for malignant neoplasm 05/04/2020 Orders Only Transplant Hepatolo gy Juan, Jolene 05/04/2020 Documentation Transplant Hepatolo gy Juan, Jolene Labs Only (SPK W PTN RE: LAB/RX RESULTS; NO MED CHANGES; REPEAT BLD WK X4 MTHS; 08/27/2020; ELAINA; GGT;) 05/04/2020 Telephone Transplant Hepatolo gy Cyndi Rivas, YOANDY Immunocompromised state (HCC) (Primary D x); H/O liver transplant (HCC); Hepatitis, autoimmune (HCC); Screening for malignant neoplasm 05/04/2020 Orders Only Transplant Hepatolo gy Juan, Jolene 05/03/2020 Documentation Transplant Hepatolo gy Juan, Jolene 04/22/2020 Documentation Transplant Hepatolo gy Cyndi Rivas, RN Follow-up 03/23/2020 Telephone Transplant Hepatolo gy Juan, Jolene Labs Only (SPK W PTN RE: LAB/RX RESULTS; NO MED CHANGES; REPEAT BLD WK X4 MTHS; 04/22/2020; ELAINA; GGT;) 12/29/2019 Telephone Transplant Hepatolo yemi Judy Cline RN 12/11/2019 Abstract Transplant Hepatolo gy Cyndi Rivas, greeter Management 11/25/2019 Telephone Transplant Hepatolo gy Juan, Jolene Labs Only (SPK W PTN RE: LAB/RX RESULTS; NO MED CHANGES; REPEAT BLD WORK X2 WKS; 12/04/2019; OPL; GGT;) 11/25/2019 Telephone Transplant Hepatolo gy Juan, Jolene 11/21/2019 Documentation Transplant Hepatolo gy Demetrio Salcedo MD 09/19/2019 Refill Transplant Hepatolo gy after 08/06/2019 Immunizations Name Administration Dates Next Due Hepatitis A 05/15/2013 Hepatitis B 06/20/2013, 05/15/2013 11/18/2013 Influenza High Dose 06/26/2015 Preservative Free [id number] Social History Date Tobacco Use Types Packs/Day Years Used Never Smoker Smokeless Tobacco: Never Used Drinks/Week oz/Week Comments Alcohol Use No Sex Assigned at Date Recorded Not on file Last Filed Vital Signs Not on file Plan of Treatment Care Team Description Date Type Specialty Nusrat Jeter MD [address] [address] [phone] 07/25/2021 Orders Only Transplant Hepatgabriella bragg Nusrat Jeter MD [address] [address] 07/25/2021 Follow-Up Transplant Hepatolo gy Health Maintenance Due Date Last Done Comments CERVICAL CANCER SCREENING 01/10/1980 PAP ONLY (Age 21-65) MEDICARE ANNUAL WELLNESS 08/14/2018 (YEAR 2 or FIRST YEAR if no IPPE) LIPID PANEL 07/17/2019 07/17/2016, 04/24/2013 BREAST CANCER SCREENING 05/08/2020 05/08/2018, 06/01/2015, 05/15/2013 COLON CANCER SCREENING 08/04/2025 08/04/2015 COLONOSCOPY PNEUMOCOCCAL VACCINE 0-64 Completed 09/26/2016, YRS 12/24/2014, 05/08/2008 INFLUENZA VACCINE Completed 05/21/2020, 07/04/2019, 06/24/2018, Additional history exists Results Not on fileafter 08/06/2019 Additional Health Concerns Last Indicated Resolved Time Infection Onset Date 08/06/2015 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
--- OUTSIDE RECORDS SUMMARY | 2020-08-06 12:11 | XMS REPORT | Continuity of Care Document ---
Author Author [facility] t Organization [facility] Address [address] [place] [address] Phone Unavailable Care Team Providers Care Events Director Name Role Phone NONSTAFF PCP Unavailable Corona MEDEROS, Gila Silverio Attphys Jolene Martinez Attphys Unavailable Rob PITT, Cyndi Attphys Unavailable Son PITT, Judy Attphys Unavailable Matias MEDEROS, Antonio Atkinson Attphys GILA CARTER Attphys Unavailable Ender WILSON Attphys Unavailable Wilner GOMEZ Admphys Unavailable Payers Payer Name Policy Type Policy Number Effective Date Expiration Date León monsivais KELSEYCAREKELSEYCARE MEDICARE [id number] 2016-Present [id number] 2017 00:00:00 [facility] r AETNA - MGD CAREAETNA INDEMNITY NON [id number] 2014- PresentComm [id number] 2015 00:00:[address] [facility] Care Medicare Advantage [id number] 2018 00:0 0:00 [facility] [employer] Medicare Supplement Plan [id number] 1992 00:00 :00 [facility] Problems Condition Name Condition Details Condition Category Status Onset Date Resolution Date Last Treatment Date Treating Clinician Comments Source Multinodular goiter Multinodular goiter Disease Active 2019-02-23 00:00 :00 [facility] Chronic diastolic heart failure Chronic diastolic heart failure Dis ease Active 2019-02-23 00:00:00 [facility] Hypotension Hypotension Disease Active 2019-02-22 00:00:00 [facility] Sleep apnea Sleep apnea Disease Active 2019-02-21 00:00:00 [facility] Possible Pneumonia due to gram-negative bacteria Possi ble Pneumonia due to gram- negative bacteria Disease Active 2019-02-21 00:00:00 [facility] Bradycardia, sinus Bradycardia, sinus Disease Active 2019-02-21 00:00:0 0 [facility] Urine incontinence Urine incontinence Disease Active 2019-02-21 00:00:0 0 [facility] Acute dyspnea Acute dyspnea Disease Active 2019-02-20 00:00:00 [facility] CKD (chronic kidney disease) stage 2, GFR 60-89 ml/min CKD (chronic kidney disease) stage 2, GFR 60-89 ml/min Disease Active 2019-02-20 00:00:00 [facility] Gastroesophageal reflux disease without esophagitis Ga stroesophageal reflux disease without esophagitis Disease Active 2019-02-20 00:00:00 [facility] Immunocompromised state Immunocompromised state Disease Active 2019-02-20 00:00:00 [facility] Bilateral atelectasis Bilateral atelectasis Disease Active 201 05-16-13 00:[facility] Ventral incisional hernia Ventral incisional hernia Disease Ac tive 2015-10-04 00:00:00 Last Assessment & Plan: Patient without pain or erythema. No desire for cosmetic correction. Will continue to follow, and correct if patient has symptoms suggestive of obstruction or ischemia, or if cosmetic correction desired. [facility] H/O liver transplant H/O liver transplant Disease Active 00:00:00 Last Assessment & Plan: Good allograft function, no signs of rejection. Continue to monitor. [facility] Screening for malignant neoplasm Screening for malignant neoplas m Disease Active 2013-08-05 00:00:00 Last Ass essment & Plan: CT triple phase from April 2013 found no concerning lesions. Repeat in October 2013. [facility] Hepatitis, autoimmune Hepatitis, autoimmune Disease Active 201 11-15-14 00:00:00 Last Assessment & Plan: Her symp toms are controlled at this time. [facility] Allergies, Adverse Reactions, Alerts Allergy Name Allergy Type Status Severity Reaction(s) Onset Date Inacti ve Date Treating Clinician Comments Source Sulfamethoxazole Allergy to Substance Active 2019-04-06 00: 00:00 [facility] Trimethoprim Allergy to Substance Active 2019-04-06 00:00:0 0 [facility] Sulfamethoxazole-Trimethoprim Propensity to adverse reactions Active 2019-02-20 00:00:00 [facility] Adhesive Bandage Drug Allergy Active Rash 2015-06-24 00:00:00 [facility] Latex Drug Allergy Active Hives 2015-06-24 00:00:00 [facility] Social History Social Habit Start Date Stop Date Quantity Comments Source Sex Assigned At [facility] Tobacco use and exposure 2019-07-24 00:00:00 2019-07-24 00:00:00 Neve r used [facility] Alcohol intake 2019-07-24 00:00:00 2019-07-24 00:00:00 Current non-drinker of alcohol (finding) [facility] Smoking Status Start Date Stop Date Source Never smoker [facility] Medications Ordered Medication Name Filled Medication Name Start Date Stop Da te Current Medication? Ordering Clinician Indication Dosage Frequency Signature (SIG) Comments Components Source oxybutynin (DITROPAN-XL) 10 MG 24 hr tablet 2019 11:14:50 2020-07-21 00:00:00 No 10mg QD Take 10 mg by mouth daily. [facility] acetaminophen (TYLENOL) 325 MG tablet 2020-07-21 11:14 :18 2020-07-21 00:00:00 No 325mg Take 325 mg by mouth every 6 (six) hours as needed for Pain. [facility] ascorbic acid/collagen hydr (ASCORBIC ACID-COLLAGEN ORAL) 2020-07-21 11:13:22 Yes 2{capsule} QD Take 2 capsules by mouth rachel clements [facility] ascorbic acid, vitamin C, (ascorbic acid with sweta hips) 500 MG tablet 2020-07-21 11:13:22 Yes 500mg QD Take 500 mg by jb th daily. [facility] multivitamin capsule 2020-07-21 11:13:22 Yes 1{capsule} QD Take 1 capsule by mouth daily. [facility] ergocalciferol (VITAMIN D2) 50,000 unit capsule 2020-07-21 11:10 :33 Yes [id number] Q7D Take 50,000 Units by mouth once a week. [facility] lactobacillus rhamnosus, GG, (CULTURELLE) 10 billion cell ca psule 2020-07-21 11:10:33 Yes 1{capsule} QD Take 1 capsule by mouth jose almanza [facility] loperamide (IMODIUM) 2 mg capsule 2020-07-21 11:10:33 Yes 2mg Take 2 mg by mouth 4 (four) times daily as needed for Diarrhea. [facility] mycophenolate (CELLCEPT) 250 mg capsule 2019-09-19 00:00:00 Yes 250mg Q.5D TAKE 1 CAPSULE (250 MG TOTAL) BY MOUTH 2 (TWO) TIMES DAILY. [facility] tacrolimus (PROGRAF) 1 MG capsule 2019-07-24 00:00:00 2019 23:59:00 No 2mg Q.5D Take 2 capsules (2 mg total) by mouth 2 (two) times daily. [facility] mycophenolate (CELLCEPT) 250 mg capsule 00:00:00 2020-07-21 00:00:00 No 250mg Q.5D Take 1 capsule (250 mg total) by mouth 2 (two) times daily. [facility] albuterol (PROVENTIL) 2.5 mg /3 mL (0.083 %) nebulizer solut ion 2019-02-23 00:00:00 Yes 2.5mg Q.25D Take 3 mLs (2.5 mg total) by nebulization 4 (four) times daily. [facility] miscellaneous medical supply Misc 2019-02-23 00:00:00 2019 00:00:00 No Nebulizer machine with all accessories. [facility] furosemide (LASIX) 20 MG tablet 2019-02-23 00:00:00 00:00:00 No 20mg Take 1 tablet (20 mg total) by m outh daily as needed (For leg swelling). [facility] pantoprazole (PROTONIX) 40 MG tablet 2016-08-22 00:00:00 Yes Immunosuppression (HCC) 40mg QD Take 1 tablet (40 mg total) by jb th daily. [facility] Immunizations Ordered Immunization Name Filled Immunization Name Date Status Comments Source Influenza High Dose Preservative Free [id number] 00:00:00 Completed [facility] Hepatitis B 2013-06-20 00:00:00 Completed [facility] Hepatitis B 2013-05-15 00:00:00 Completed [facility] Hepatitis A 2013-05-15 00:00:00 Completed [facility] Procedures This patient has no known procedures. Plan of Care Planned Activity Planned Date Details Comments Source Future Scheduled Test 2025-08-04 00:00:00 Screening for evin gnant neoplasm of colon (procedure) [code = 106676440] [facility] Future Scheduled Test 2020-05-08 00:00:00 Screening for evin gnant neoplasm of breast (procedure) [code = 403569374] [facility] Future Scheduled Test 2019-07-17 00:00:00 Lipid panel (proce dure) [code = 87816339] [facility] Future Scheduled Test 2018-08-14 00:00:00 MEDICARE ANNUAL WE LLNESS (YEAR 2 or FIRST YEAR if no IPPE) [code = MEDICARE ANNUAL WELLNESS (YEAR 2 or FIRST YEAR if no IPPE)] [facility] Future Scheduled Test 1980-01-10 00:00:00 Screening for evin gnant neoplasm of cervix (procedure) [code = 224935021] [facility] Encounters Start Date/Time End Date/Time Encounter Type Admission Type Attendi [facility] Care Department Encounter ID Source 2019-04-06 11:47:00 2019-04-06 12:49:00 Departed Emergency Room [facility] [id number] [facility] Results Test Description Test Time Test Comments Results Result Comments Source TACROLIMUS LEVEL 2019-07-24 11:05:00 Test Item TACROLIMUS BLOOD (BEAKER) (test code = 657) 7.1 ng/mL 10.0-20.0 L HEPATITIS C [id number] 09:36:00* Test Item Value Reference Range Interpretation Comments HEPATITIS C ANTIBODY (BEAKER) (test code = 367) Nonreactive Nonrea ctive [id number] 09:20:00* Test Item Value Reference Range Interpretation Comments MAGNESIUM (BEAKER) (test code = 627) 1.7 mg/dL 1.6-2.6 COMPREHENSIVE METABOLIC [id number] 09:20:00* Test Item Value Reference Range Interpretation Comments TOTAL PROTEIN (BEAKER) (test code = 770) 6.4 gm/dL 6.0-8.3 ALBUMIN (BEAKER) (test code = 1145) 4.0 g/dL 3.5-5.0 ALKALINE PHOSPHATASE (BEAKER) (test code = 346) 79 U/L 40-150 BILIRUBIN TOTAL (BEAKER) (test code = 377) 0.9 mg/dL 0.2-1.2 SODIUM (BEAKER) (test code = 381) 140 meq/L 136-145 POTASSIUM (BEAKER) (test code = 379) 4.2 meq/L 3.5-5.1 CHLORIDE (BEAKER) (test code = 382) 109 meq/L 98-107 H CO2 (BEAKER) (test code = 355) 26 meq/L 22-29 BLOOD UREA NITROGEN (BEAKER) (test code = 354) 23 mg/dL 7-21 H CREATININE (BEAKER) (test code = 358) 0.99 mg/dL 0.57-1.25 GLUCOSE RANDOM (BEAKER) (test code = 652) 94 mg/dL 70-105 CALCIUM (BEAKER) (test code = 697) 8.7 mg/dL 8.4-10.2 AST (SGOT) (BEAKER) (test code = 353) 25 U/L 5-34 ALT (SGPT) (BEAKER) (test code = 347) 31 U/L 6-55 EGFR (BEAKER) (test code = 1092) 57 mL/min/1.73 sq m ESTIMATED GFR IS NOT ACCURATE CREATININE CLEARANCE IN PREDICTING GLOMERULAR FILTRATION RATE. ESTIMATED GFR IS NOT APPLICABLE FOR DIALYSIS PATIENTS. BILIRUBIN, [id number] 09:20:00* Test Item Value Reference Range Interpretation Comments BILIRUBIN DIRECT (BEAKER) (test code = 706) 0.4 mg/dL 0.1-0.5 CBC W/PLT COUNT & AUTO [id number] 08:48:00* Test Item Value Reference Range Interpretation Comments WHITE BLOOD CELL COUNT (BEAKER) (test code = 775) 5.4 K/ L 3.5- 10.5 RED BLOOD CELL COUNT (BEAKER) (test code = 761) 4.31 M/ L 3.93-5 .22 HEMOGLOBIN (BEAKER) (test code = 410) 13.1 GM/DL 11.2-15.7 HEMATOCRIT (BEAKER) (test code = 411) 38.4 % 34.1-44.9 MEAN CORPUSCULAR VOLUME (BEAKER) (test code = 753) 89.1 fL 79. 4-94.8 MEAN CORPUSCULAR HEMOGLOBIN (BEAKER) (test code = 751) 30.4 pg 25.6-32.2 MEAN CORPUSCULAR HEMOGLOBIN CONC (BEAKER) (test code = 752) 34.1 GM/DL 32.2-35.5 RED CELL DISTRIBUTION WIDTH (BEAKER) (test code = 412) 15.0 % 11.7-14.4 H PLATELET COUNT (BEAKER) (test code = 756) 153 K/CU MM 150-450 MEAN PLATELET VOLUME (BEAKER) (test code = 754) 11.0 fL 9.4-12 .3 NUCLEATED RED BLOOD CELLS (BEAKER) (test code = 413) 0 /100 WBC 0 -0 NEUTROPHILS RELATIVE PERCENT (BEAKER) (test code = 429) 58 % LYMPHOCYTES RELATIVE PERCENT (BEAKER) (test code = 430) 29 % MONOCYTES RELATIVE PERCENT (BEAKER) (test code = 431) 8 % EOSINOPHILS RELATIVE PERCENT (BEAKER) (test code = 432) 4 % BASOPHILS RELATIVE PERCENT (BEAKER) (test code = 437) 0 % NEUTROPHILS ABSOLUTE COUNT (BEAKER) (test code = 670) 3.14 K/ L 1.56-6.13 LYMPHOCYTES ABSOLUTE COUNT (BEAKER) (test code = 414) 1.53 K/ L 1.18-3.74 MONOCYTES ABSOLUTE COUNT (BEAKER) (test code = 415) 0.44 K/ L 0. 24-0.36 H EOSINOPHILS ABSOLUTE COUNT (BEAKER) (test code = 416) 0.23 K/ L 0.04-0.36 BASOPHILS ABSOLUTE COUNT (BEAKER) (test code = 417) 0.02 K/ L 0. 01-0.08 IMMATURE GRANULOCYTES-RELATIVE PERCENT (BEAKER) (test code = 2801) 0 % 0-1 BLOOD [id number] 20:01:00* Test Item Value Reference Range Interpretation Comments CULTURE (BEAKER) (test code = 1095) No growth in 5 days BLOOD [id number] 20:01:00* Test Item Value Reference Range Interpretation Comments CULTURE (BEAKER) (test code = 1095) No growth in 5 days TACROLIMUS [id number] 10:58:00* Test Item Value Reference Range Interpretation Comments TACROLIMUS BLOOD (BEAKER) (test code = 657) 7.8 ng/mL 10.0-20.0 L VRE [id number] 10:54:00* Test Item Value Reference Range Interpretation Comments CULTURE (BEAKER) (test code = 1095) No vancomycin-resi stant Enterococcus isolated SPUTUM CULTURE + GRAM [id number] 09:15:00* Test Item Value Reference Range Interpretation Comments CULTURE (BEAKER) (test code = 1095) 1+ Normal respiratory johanny pre sent GRAM STAIN RESULT (BEAKER) (test code = 1123) 1+ WBCs GRAM STAIN RESULT (BEAKER) (test code = 62039) 0-5 epithelial cells GRAM STAIN RESULT (BEAKER) (test code = 84922) No organisms seen CBC W/PLT COUNT & AUTO [id number] 06:53:00* Test Item Value Reference Range Interpretation Comments WHITE BLOOD CELL COUNT (BEAKER) (test code = 775) 4.8 K/ L 3.5- 10.5 RED BLOOD CELL COUNT (BEAKER) (test code = 761) 3.58 M/ L 3.93-5 .22 L HEMOGLOBIN (BEAKER) (test code = 410) 10.5 GM/DL 11.2-15.7 L HEMATOCRIT (BEAKER) (test code = 411) 31.1 % 34.1-44.9 L MEAN CORPUSCULAR VOLUME (BEAKER) (test code = 753) 86.9 fL 79. 4-94.8 MEAN CORPUSCULAR HEMOGLOBIN (BEAKER) (test code = 751) 29.3 pg 25.6-32.2 MEAN CORPUSCULAR HEMOGLOBIN CONC (BEAKER) (test code = 752) 33.8 GM/DL 32.2-35.5 RED CELL DISTRIBUTION WIDTH (BEAKER) (test code = 412) 15.5 % 11.7-14.4 H PLATELET COUNT (BEAKER) (test code = 756) 192 K/CU MM 150-450 MEAN PLATELET VOLUME (BEAKER) (test code = 754) 11.9 fL 9.4-12 .3 NUCLEATED RED BLOOD CELLS (BEAKER) (test code = 413) 0 /100 WBC 0 -0 NEUTROPHILS RELATIVE PERCENT (BEAKER) (test code = 429) 54 % LYMPHOCYTES RELATIVE PERCENT (BEAKER) (test code = 430) 24 % MONOCYTES RELATIVE PERCENT (BEAKER) (test code = 431) 8 % EOSINOPHILS RELATIVE PERCENT (BEAKER) (test code = 432) 12 % BASOPHILS RELATIVE PERCENT (BEAKER) (test code = 437) 0 % NEUTROPHILS ABSOLUTE COUNT (BEAKER) (test code = 670) 2.58 K/ L 1.56-6.13 LYMPHOCYTES ABSOLUTE COUNT (BEAKER) (test code = 414) 1.16 K/ L 1.18-3.74 L MONOCYTES ABSOLUTE COUNT (BEAKER) (test code = 415) 0.40 K/ L 0. 24-0.36 H EOSINOPHILS ABSOLUTE COUNT (BEAKER) (test code = 416) 0.55 K/ L 0.04-0.36 H BASOPHILS ABSOLUTE COUNT (BEAKER) (test code = 417) 0.02 K/ L 0. 01-0.08 IMMATURE GRANULOCYTES-RELATIVE PERCENT (BEAKER) (test code = 2801) 2 % 0-1 H BASIC METABOLIC [id number] 06:34:00* Test Item Value Reference Range Interpretation Comments SODIUM (BEAKER) (test code = 381) 141 meq/L 136-145 POTASSIUM (BEAKER) (test code = 379) 4.0 meq/L 3.5-5.1 Specimen slightly hemolyzed CHLORIDE (BEAKER) (test code = 382) 116 meq/L 98-107 H CO2 (BEAKER) (test code = 355) 19 meq/L 22-29 L BLOOD UREA NITROGEN (BEAKER) (test code = 354) 20 mg/dL 7-21 CREATININE (BEAKER) (test code = 358) 0.98 mg/dL 0.57-1.25 Specimen slightly hemolyzed GLUCOSE RANDOM (BEAKER) (test code = 652) 105 mg/dL 70-105 CALCIUM (BEAKER) (test code = 697) 8.5 mg/dL 8.4-10.2 EGFR (BEAKER) (test code = 1092) 58 mL/min/1.73 sq m ESTIMATED GFR IS NOT ACCURATE CREATININE CLEARANCE IN PREDICTING GLOMERULAR FILTRATION RATE. ESTIMATED GFR IS NOT APPLICABLE FOR DIALYSIS PATIENTS. HEPATIC FUNCTION [id number] 06:34:00* Test Item Value Reference Range Interpretation Comments TOTAL PROTEIN (BEAKER) (test code = 770) 5.3 gm/dL 6.0-8.3 L Specimen slightly hemolyzed ALBUMIN (BEAKER) (test code = 1145) 3.5 g/dL 3.5-5.0 Specimen slightly hemolyzed BILIRUBIN TOTAL (BEAKER) (test code = 377) 0.6 mg/dL 0.2-1.2 Specimen slightly hemolyzed BILIRUBIN DIRECT (BEAKER) (test code = 706) 0.3 mg/dL 0.1-0.5 Specimen slightly hemolyzed ALKALINE PHOSPHATASE (BEAKER) (test code = 346) 68 U/L 40-150 AST (SGOT) (BEAKER) (test code = 353) 13 U/L 5-34 Specimen slightly hemolyzed ALT (SGPT) (BEAKER) (test code = 347) 7 U/L 6-55 Specimen slightly hemolyzed TACROLIMUS [id number] 11:41:00* Test Item Value Reference Range Interpretation Comments TACROLIMUS BLOOD (BEAKER) (test code = 657) 11.3 ng/mL 10.0-20.0 CORTISOL,60 [id number] 11:23:00* Test Item Value Reference Range Interpretation Comments CORTISOL BASELINE NETWORKED (BEAKER) (test code = 2307) 7.4 mcg/dL CORTISOL 30 MINUTE NETWORKED (BEAKER) (test code = 2308) 13.4 mcg/d L CORTISOL, 60 MINUTE (BEAKER) (test code = 1805) 9.9 ug/dL ACTH STIMULATION TEST INTERPRETATION GUIDELINES(Synonyms: [...] to a study by Kylie et al ([facility] 2000,283(8):1038-45), the ACTH Stimulation Test provides important [...] cortisol level 60 minutes after cosyntropin administration.CORTISOL,30 [id number] 10:48:00* Test Item Value Reference Range Interpretation Comments CORTISOL BASELINE NETWORKED (BEAKER) (test code = 2307) 7.4 mcg/dL CORTISOL, 30 MINUTE (BEAKER) (test code = 1804) 13.4 ug/dL ACTH STIMULATION TEST INTERPRETATION GUIDELINES(Synonyms: [...] study by Kylie et al ([facility]ERMAN 2000,283(8):0640-45), the ACTH Stimulation Test provides important prognostic [...] serum cortisol level 60 minutes after cosyntropin administration.CORTISOL,[id number] 10:20:00* Test Item Value Reference Range Interpretation Comments CORTISOL, BASELINE (KIM) (test code = 1803) 7.4 ug/dL ACTH STIMULATION TEST INTERPRETATION GUIDELINES(Synonyms: [...] to a study by Kylie et al ([facility] 1999,283(8):1038-45), the ACTH Stimulation Test provides important [...] after cosyntropin administration.CBC W/PLT COUNT & AUTO [id number] 07:58:00* Test Item Value Reference Range Interpretation Comments WHITE BLOOD CELL COUNT (BEAKER) (test code = 775) 5.5 K/ L 3.5- 10.5 RED BLOOD CELL COUNT (BEAKER) (test code = 761) 3.80 M/ L 3.93-5 .22 L HEMOGLOBIN (BEAKER) (test code = 410) 11.2 GM/DL 11.2-15.7 HEMATOCRIT (BEAKER) (test code = 411) 33.7 % 34.1-44.9 L MEAN CORPUSCULAR VOLUME (BEAKER) (test code = 753) 88.7 fL 79. 4-94.8 MEAN CORPUSCULAR HEMOGLOBIN (BEAKER) (test code = 751) 29.5 pg 25.6-32.2 MEAN CORPUSCULAR HEMOGLOBIN CONC (BEAKER) (test code = 752) 33.2 GM/DL 32.2-35.5 RED CELL DISTRIBUTION WIDTH (BEAKER) (test code = 412) 15.5 % 11.7-14.4 H PLATELET COUNT (BEAKER) (test code = 756) 196 K/CU MM 150-450 MEAN PLATELET VOLUME (BEAKER) (test code = 754) 11.6 fL 9.4-12 .3 NUCLEATED RED BLOOD CELLS (BEAKER) (test code = 413) 0 /100 WBC 0 -0 NEUTROPHILS RELATIVE PERCENT (BEAKER) (test code = 429) 51 % LYMPHOCYTES RELATIVE PERCENT (BEAKER) (test code = 430) 24 % MONOCYTES RELATIVE PERCENT (BEAKER) (test code = 431) 9 % EOSINOPHILS RELATIVE PERCENT (BEAKER) (test code = 432) 13 % BASOPHILS RELATIVE PERCENT (BEAKER) (test code = 437) 1 % NEUTROPHILS ABSOLUTE COUNT (BEAKER) (test code = 670) 2.80 K/ L 1.56-6.13 LYMPHOCYTES ABSOLUTE COUNT (BEAKER) (test code = 414) 1.34 K/ L 1.18-3.74 MONOCYTES ABSOLUTE COUNT (BEAKER) (test code = 415) 0.50 K/ L 0. 24-0.36 H EOSINOPHILS ABSOLUTE COUNT (BEAKER) (test code = 416) 0.70 K/ L 0.04-0.36 H BASOPHILS ABSOLUTE COUNT (BEAKER) (test code = 417) 0.03 K/ L 0. 01-0.08 IMMATURE GRANULOCYTES-RELATIVE PERCENT (BEAKER) (test code = 2801) 3 % 0-1 H HEPATIC FUNCTION [id number] 07:07:00* Test Item Value Reference Range Interpretation Comments TOTAL PROTEIN (BEAKER) (test code = 770) 5.5 gm/dL 6.0-8.3 L ALBUMIN (BEAKER) (test code = 1145) 3.6 g/dL 3.5-5.0 BILIRUBIN TOTAL (BEAKER) (test code = 377) 0.9 mg/dL 0.2-1.2 BILIRUBIN DIRECT (BEAKER) (test code = 706) 0.4 mg/dL 0.1-0.5 ALKALINE PHOSPHATASE (BEAKER) (test code = 346) 69 U/L 40-150 AST (SGOT) (BEAKER) (test code = 353) 10 U/L 5-34 ALT (SGPT) (BEAKER) (test code = 347) 8 U/L 6-55 BASIC METABOLIC [id number] 07:07:00* Test Item Value Reference Range Interpretation Comments SODIUM (BEAKER) (test code = 381) 139 meq/L 136-145 POTASSIUM (BEAKER) (test code = 379) 4.1 meq/L 3.5-5.1 CHLORIDE (BEAKER) (test code = 382) 113 meq/L 98-107 H CO2 (BEAKER) (test code = 355) 21 meq/L 22-29 L BLOOD UREA NITROGEN (BEAKER) (test code = 354) 20 mg/dL 7-21 CREATININE (BEAKER) (test code = 358) 1.13 mg/dL 0.57-1.25 GLUCOSE RANDOM (BEAKER) (test code = 652) 94 mg/dL 70-105 CALCIUM (BEAKER) (test code = 697) 8.7 mg/dL 8.4-10.2 EGFR (BEAKER) (test code = 1092) 49 mL/min/1.73 sq m ESTIMATED GFR IS NOT ACCURATE CREATININE CLEARANCE IN PREDICTING GLOMERULAR FILTRATION RATE. ESTIMATED GFR IS NOT APPLICABLE FOR DIALYSIS PATIENTS. [id number] 06:55:00* Test Item Value Reference Range Interpretation Comments THYROID STIMULATING HORMONE (BEAKER) (test code = 772) 0.98 uIU/mL 0.35-4.94 URINALYSIS W/ REFLEX URINE [id number] 18:02:00* Test Item Value Reference Range Interpretation Comments COLOR (BEAKER) (test code = 470) Yellow CLARITY (BEAKER) (test code = 469) Clear SPECIFIC GRAVITY UA (BEAKER) (test code = 468) 1.016 1.001-1 .035 PH UA (BEAKER) (test code = 467) 6.0 5.0-8.0 PROTEIN UA (BEAKER) (test code = 464) 10 mg/dL Negative A GLUCOSE UA (BEAKER) (test code = 365) Negative Negative KETONES UA (BEAKER) (test code = 371) Negative Negative BILIRUBIN UA (BEAKER) (test code = 462) Negative Negative BLOOD UA (BEAKER) (test code = 461) Negative Negative NITRITE UA (BEAKER) (test code = 465) Negative Negative LEUKOCYTE ESTERASE UA (BEAKER) (test code = 466) Negative Negat tiffanie UROBILINOGEN UA (BEAKER) (test code = 463) 0.2 mg/dL 0.2-1.0 RBC UA (BEAKER) (test code = 519) 0 /HPF WBC UA (BEAKER) (test code = 520) 1 /HPF MUCUS (BEAKER) (test code = 1574) Rare SQUAMOUS EPITHELIAL (BEAKER) (test code = 516) 1 /HPF SOURCE(BEAKER) (test code = 2795) TACROLIMUS [id number] 10:32:00* Test Item Value Reference Range Interpretation Comments TACROLIMUS BLOOD (BEAKER) (test code = 657) 5.5 ng/mL 10.0-20.0 L TACROLIMUS [id number] 10:32:00* Test Item Value Reference Range Interpretation Comments TACROLIMUS BLOOD (BEAKER) (test code = 657) 14.7 ng/mL 10.0-20.0 HEPATIC FUNCTION [id number] 06:02:00* Test Item Value Reference Range Interpretation Comments TOTAL PROTEIN (BEAKER) (test code = 770) 5.2 gm/dL 6.0-8.3 L ALBUMIN (BEAKER) (test code = 1145) 3.6 g/dL 3.5-5.0 BILIRUBIN TOTAL (BEAKER) (test code = 377) 0.9 mg/dL 0.2-1.2 BILIRUBIN DIRECT (BEAKER) (test code = 706) 0.4 mg/dL 0.1-0.5 ALKALINE PHOSPHATASE (BEAKER) (test code = 346) 64 U/L 40-150 AST (SGOT) (BEAKER) (test code = 353) 10 U/L 5-34 ALT (SGPT) (BEAKER) (test code = 347) 9 U/L 6-55 BASIC METABOLIC [id number] 06:02:00* Test Item Value Reference Range Interpretation Comments SODIUM (BEAKER) (test code = 381) 138 meq/L 136-145 POTASSIUM (BEAKER) (test code = 379) 3.7 meq/L 3.5-5.1 CHLORIDE (BEAKER) (test code = 382) 112 meq/L 98-107 H CO2 (BEAKER) (test code = 355) 20 meq/L 22-29 L BLOOD UREA NITROGEN (BEAKER) (test code = 354) 18 mg/dL 7-21 CREATININE (BEAKER) (test code = 358) 0.85 mg/dL 0.57-1.25 GLUCOSE RANDOM (BEAKER) (test code = 652) 90 mg/dL 70-105 CALCIUM (BEAKER) (test code = 697) 8.4 mg/dL 8.4-10.2 EGFR (BEAKER) (test code = 1092) 68 mL/min/1.73 sq m ESTIMATED GFR IS NOT ACCURATE CREATININE CLEARANCE IN PREDICTING GLOMERULAR FILTRATION RATE. ESTIMATED GFR IS NOT APPLICABLE FOR DIALYSIS PATIENTS. CBC W/PLT COUNT & AUTO [id number] 05:55:00* Test Item Value Reference Range Interpretation Comments WHITE BLOOD CELL COUNT (BEAKER) (test code = 775) 5.4 K/ L 3.5- 10.5 RED BLOOD CELL COUNT (BEAKER) (test code = 761) 3.67 M/ L 3.93-5 .22 L HEMOGLOBIN (BEAKER) (test code = 410) 10.7 GM/DL 11.2-15.7 L HEMATOCRIT (BEAKER) (test code = 411) 32.2 % 34.1-44.9 L MEAN CORPUSCULAR VOLUME (BEAKER) (test code = 753) 87.7 fL 79. 4-94.8 MEAN CORPUSCULAR HEMOGLOBIN (BEAKER) (test code = 751) 29.2 pg 25.6-32.2 MEAN CORPUSCULAR HEMOGLOBIN CONC (BEAKER) (test code = 752) 33.2 GM/DL 32.2-35.5 RED CELL DISTRIBUTION WIDTH (BEAKER) (test code = 412) 15.2 % 11.7-14.4 H PLATELET COUNT (BEAKER) (test code = 756) 196 K/CU MM 150-450 MEAN PLATELET VOLUME (BEAKER) (test code = 754) 11.6 fL 9.4-12 .3 NUCLEATED RED BLOOD CELLS (BEAKER) (test code = 413) 0 /100 WBC 0 -0 NEUTROPHILS RELATIVE PERCENT (BEAKER) (test code = 429) 50 % LYMPHOCYTES RELATIVE PERCENT (BEAKER) (test code = 430) 25 % MONOCYTES RELATIVE PERCENT (BEAKER) (test code = 431) 8 % EOSINOPHILS RELATIVE PERCENT (BEAKER) (test code = 432) 15 % BASOPHILS RELATIVE PERCENT (BEAKER) (test code = 437) 1 % NEUTROPHILS ABSOLUTE COUNT (BEAKER) (test code = 670) 2.69 K/ L 1.56-6.13 LYMPHOCYTES ABSOLUTE COUNT (BEAKER) (test code = 414) 1.34 K/ L 1.18-3.74 MONOCYTES ABSOLUTE COUNT (BEAKER) (test code = 415) 0.44 K/ L 0. 24-0.36 H EOSINOPHILS ABSOLUTE COUNT (BEAKER) (test code = 416) 0.82 K/ L 0.04-0.36 H BASOPHILS ABSOLUTE COUNT (BEAKER) (test code = 417) 0.03 K/ L 0. 01-0.08 IMMATURE GRANULOCYTES-RELATIVE PERCENT (BEAKER) (test code = 2801) 2 % 0-1 H RESPIRATORY PANEL [id number] 22:39:00* Test Item Value Reference Range Interpretation Comments HUMAN METAPNEUMOVIRUS (BEAKER) (test code = 2683) Not detect ed Not detected, Equivocal RHINOVIRUS (BEAKER) (test code = 2684) Not detected Not detected, E quivocal INFLUENZA A (BEAKER) (test code = 9215) Not detected Not detected, Equivocal INFLUENZA A (NO SUBTYPE) (test code = 8890) Not detect ed, Equivocal INFLUENZA A SUBTYPE H1 (BEAKER) (test code = 2756) Not detected, Equivocal INFLUENZA A SUBTYPE H3 (BEAKER) (test code = 2337) Not detected, Equivocal INFLUENZA A SUBTYPE H1-2009 (BEAKER) (test code = 5448) Not detected, Equivocal INFLUENZA B (BEAKER) (test code = 7168) Not detected Not detected, Equivocal RESPIRATORY SYNCYTIAL VIRUS (BEAKER) (test code = 9139) Not detected Not detected, Equivocal PARAINFLUENZA VIRUS 1 (BEAKER) (test code = 2691) Not detect ed Not detected, Equivocal PARAINFLUENZA VIRUS 2 (BEAKER) (test code = 2692) Not detect ed Not detected, Equivocal PARAINFLUENZA VIRUS 3 (BEAKER) (test code = 2693) Not detect ed Not detected, Equivocal PARAINFLUENZA VIRUS 4 (BEAKER) (test code = 3200) Not detect ed Not detected, Equivocal ADENOVIRUS (BEAKER) (test code = 2694) Not detected Not detected, E quivocal CORONAVIRUS 229E (BEAKER) (test code = 3201) Not detected Not detected, Equivocal CORONAVIRUS HKU1 (BEAKER) (test code = 3202) Not detected Not detected, Equivocal CORONAVIRUS NL63 (BEAKER) (test code = 3203) Not detected Not detected, Equivocal CORONAVIRUS OC43 (BEAKER) (test code = 3204) Not detected Not detected, Equivocal BORDETELLA PERTUSSIS (BEAKER) (test code = 3205) Not detecte d Not detected, Equivocal CHLAMYDOPHILA PNEUMONIAE (BEAKER) (test code = 3206) Not det ected Not detected, Equivocal MYCOPLASMA PNEUMONIAE (BEAKER) (test code = 3207) Not detect ed Not detected, Equivocal Other viruses and bacteria not targeted by this PCR panel cannot be excluded; th erefore clinical correlation and follow up of serology, culture results, and oth er molecular studies is required. The results are not intended to be used as the sole means for clinical diagnosis or patient management decisions. This sample was tested at the [facility] using the GuardiumA rray Respiratory Panel. It is FDA cleared and has been verified and approved by the [facility] for clinical use on nasopharyngeal sw ab specimens.The performance of the FilmArray RP has not been established in ind ividuals who received influenza vaccine. Recent administration of a nasal influ jaswant vaccine may cause false positive results for Influenza A and/orInfluenza B. LEGIONELLA ANTIGEN, [id number] 22:15:00* Test Item Value Reference Range Interpretation Comments L. PNEUMOPHILA SEROGP 1 UR AG (BEAKER) (test code = 11 56) Negative - see comment Negative for L. pneu mophila serogroup 1 antigen, suggesting no recent or current infection with this serogroup. Legionellosis cannot be ruled out since other serogroups and species may cause disease. STREP PNEUMONIAE [id number] 22:14:00* Test Item Value Reference Range Interpretation Comments STREP PNEUMONIAE ANTIGEN (BEAKER) (test code = 1615) P resumptive negative for pneumococcal pneumonia - see comment Presumptive negative for pneumococcal pneumonia - see commen Presumptive negative for pneumococcal pneumonia, suggesting no current or recent pneumococcal infection. Infection due to S. pneumoniae cannot be ruled out since the antigen present in the sample may be below the detection limit of the test. CT, CHEST, WITHOUT [id number] 21:42:00FINAL REPORT CT, CHEST, WITHOUT CONTRAST INDICATION: [...] No additional imaging workup recomm ended. Signed: Gaston Ohara MDReport Verified Date/Time: 02/20/2019 21:42:47 D INFLUENZA A&B [id number] 19:38:00* Test Item Value Reference Range Interpretation Comments RAPID INFLUENZA A AG (BEAKER) (test code = 1622) Negative Negative, Inconclusive RAPID INFLUENZA B AG (BEAKER) (test code = 1623) Negative Negative, Inconclusive [id number] 19:27:00* Test Item Value Reference Range Interpretation Comments D-DIMER QUANTITATIVE (BEAKER) (test code = 671) 0.29 MG/L FEU <0.50 Intended Use: The D-Dimer Assay can be used to aid in the diagnosis of Deep Vein Thrombosis (DVT) and Pulmonary Embolism Disease (PED).In patients with low pre- test probability, various studies concerning STA Liatest D-dimer test have repor camille that with a cutoff value of 0.50 MG/L FEU, the Negative Predictive Value (SENIOR ASIC ENGINEER V) regarding the exclusion of thrombosis is within 95-100% range.POCT-LACTIC ACID, [id number] 15:10:00* Test Item Value Reference Range Interpretation Comments POC-LACTIC ACID, VENOUS (BEAKER) (test code = 2805) 0.5 mmol/L 0. 9-1.[address] [facility] [address] [facility] [id number] TROPONIN [id number] 13:44:00* Test Item Value Reference Range Interpretation Comments TROPONIN I (BEAKER) (test code = 397) < ng/mL 0.00-0.03 Troponin I (TnI) levels [...] (BNP)2019-02-20 13:43:00* Test Item Value Reference Range Interpretation Comments B-TYPE NATRIURETIC PEPTIDE (BEAKER) (test code = 700) 36 pg/mL 0-100 HEPATIC FUNCTION [id number] 13:37:00* Test Item Value Reference Range Interpretation Comments TOTAL PROTEIN (BEAKER) (test code = 770) 6.6 gm/dL 6.0-8.3 ALBUMIN (BEAKER) (test code = 1145) 4.3 g/dL 3.5-5.0 BILIRUBIN TOTAL (BEAKER) (test code = 377) 1.0 mg/dL 0.2-1.2 BILIRUBIN DIRECT (BEAKER) (test code = 706) 0.4 mg/dL 0.1-0.5 ALKALINE PHOSPHATASE (BEAKER) (test code = 346) 83 U/L 40-150 AST (SGOT) (BEAKER) (test code = 353) 12 U/L 5-34 ALT (SGPT) (BEAKER) (test code = 347) 10 U/L 6-55 BASIC METABOLIC [id number] 13:37:00* Test Item Value Reference Range Interpretation Comments SODIUM (BEAKER) (test code = 381) 140 meq/L 136-145 POTASSIUM (BEAKER) (test code = 379) 3.8 meq/L 3.5-5.1 CHLORIDE (BEAKER) (test code = 382) 113 meq/L 98-107 H CO2 (BEAKER) (test code = 355) 19 meq/L 22-29 L BLOOD UREA NITROGEN (BEAKER) (test code = 354) 20 mg/dL 7-21 CREATININE (BEAKER) (test code = 358) 1.03 mg/dL 0.57-1.25 GLUCOSE RANDOM (BEAKER) (test code = 652) 119 mg/dL 70-105 H CALCIUM (BEAKER) (test code = 697) 9.2 mg/dL 8.4-10.2 EGFR (BEAKER) (test code = 1092) 55 mL/min/1.73 sq m ESTIMATED GFR IS NOT ACCURATE CREATININE CLEARANCE IN PREDICTING GLOMERULAR FILTRATION RATE. ESTIMATED GFR IS NOT APPLICABLE FOR DIALYSIS PATIENTS. [id number] 13:31:00* Test Item Value Reference Range Interpretation Comments PROTIME (BEAKER) (test code = 759) 14.9 seconds 11.9-14.2 H INR (BEAKER) (test code = 370) 1.2 <=5.9 PARTIAL THROMBOPLASTIN TIME (BEAKER) (test code = 760) 37.2 seconds 22.5-36.0 H Effective 02/05/2019: PT Reference Range ChangeNew: 11.9-14.2 Previous: 11.7-14. 7RECOMMENDED COUMADIN/WARFARIN INR THERAPY RANGESSTANDARD DOSE: 2.0-3.0 Include s: PROPHYLAXIS for venous thrombosis, systemic embolization; TREATMENT for venou s thrombosis and/or pulmonary embolus.HIGH RISK: Target INR is 2.5-3.5 for patie nts wiht mechanical heart valves.CBC W/PLT COUNT & AUTO [id number] 13:25:00* Test Item Value Reference Range Interpretation Comments WHITE BLOOD CELL COUNT (BEAKER) (test code = 775) 7.4 K/ L 3.5- 10.5 RED BLOOD CELL COUNT (BEAKER) (test code = 761) 4.29 M/ L 3.93-5 .22 HEMOGLOBIN (BEAKER) (test code = 410) 12.8 GM/DL 11.2-15.7 HEMATOCRIT (BEAKER) (test code = 411) 37.2 % 34.1-44.9 MEAN CORPUSCULAR VOLUME (BEAKER) (test code = 753) 86.7 fL 79. 4-94.8 MEAN CORPUSCULAR HEMOGLOBIN (BEAKER) (test code = 751) 29.8 pg 25.6-32.2 MEAN CORPUSCULAR HEMOGLOBIN CONC (BEAKER) (test code = 752) 34.4 GM/DL 32.2-35.5 RED CELL DISTRIBUTION WIDTH (BEAKER) (test code = 412) 15.3 % 11.7-14.4 H PLATELET COUNT (BEAKER) (test code = 756) 220 K/CU MM 150-450 MEAN PLATELET VOLUME (BEAKER) (test code = 754) 11.1 fL 9.4-12 .3 NUCLEATED RED BLOOD CELLS (BEAKER) (test code = 413) 0 /100 WBC 0 -0 NEUTROPHILS RELATIVE PERCENT (BEAKER) (test code = 429) 54 % LYMPHOCYTES RELATIVE PERCENT (BEAKER) (test code = 430) 18 % MONOCYTES RELATIVE PERCENT (BEAKER) (test code = 431) 7 % EOSINOPHILS RELATIVE PERCENT (BEAKER) (test code = 432) 19 % BASOPHILS RELATIVE PERCENT (BEAKER) (test code = 437) 0 % NEUTROPHILS ABSOLUTE COUNT (BEAKER) (test code = 670) 4.05 K/ L 1.56-6.13 LYMPHOCYTES ABSOLUTE COUNT (BEAKER) (test code = 414) 1.32 K/ L 1.18-3.74 MONOCYTES ABSOLUTE COUNT (BEAKER) (test code = 415) 0.51 K/ L 0. 24-0.36 H EOSINOPHILS ABSOLUTE COUNT (BEAKER) (test code = 416) 1.41 K/ L 0.04-0.36 H BASOPHILS ABSOLUTE COUNT (BEAKER) (test code = 417) 0.03 K/ L 0. 01-0.08 IMMATURE GRANULOCYTES-RELATIVE PERCENT (BEAKER) (test code = 2801) 2 % 0-1 H RAD, CHEST, 2 [id number] 12:54:00Reason for exam:->PNEUMONIAReason for exam:->LIVER TRANSPLANTFINAL REPORT [...] unremarkable. IMPRESSION: Bibasilar atelectasis. Signed: Clayton Gan MDReport Verified Date/Time: 02/20/2019 12:54:47 Reading Location: [facility] B1 [id number] Consult Reading Room
[2020-08-06] MEDS ORDERED: PROGRAF1 MG PO (12:26)
[2020-08-06] MEDS ORDERED: PROTONIX20 MG PO (12:26)
[2020-08-06] MEDS ORDERED: ALENDRONATE SOD70 MG (12:26)
[2020-08-06] MEDS ORDERED: CELLCEPT250 MG (12:26)
== END 2020-08-06 12:02 | disposition home or self-care (01) ==
LOC: FSED 11:52
DX: N39.0 Urinary tract infection, site not specified (principal); Z94.4 Liver transplant status
CPT/HCPCS: 81003; 99283

== ENCOUNTER 2024-05-17 06:32 | Emergency (ER) | payer MEDICARE, OTHER ==
[~2024-05-17] VITALS: Ht 152.4 cm; Wt 89.8 kg
[~2024-05-17 06:32] MED LIST: ALENDRONATE SOD70 MG; CELLCEPT250 MG; PROGRAF1 MG PO; PROTONIX20 MG PO
[2024-05-17 07:11] VITALS: PULSE 84; RESP 18; TEMP 98.3
[2024-05-17] MEDS ORDERED: AMOX TR-K CLV1 EAC2 PO (08:15)
[2024-05-17 08:30] VITALS: BP 160/91; PULSE 71; RESP 17; TEMP 98.4; O2SAT 96
== END 2024-05-17 08:30 | disposition home or self-care (01) ==
LOC: FSED 06:46
DX: R05.9 Cough, unspecified (principal); J01.90 Acute sinusitis, unspecified; R09.81 Nasal congestion; R51.9 Headache, unspecified; M81.0 Age-related osteoporosis without current pathological fracture; Z11.52 Encounter for screening for COVID-19; Z94.4 Liver transplant status
CPT/HCPCS: 0223U; 87400; 99282